=== PATIENT | male | born 1965 | race Two or more races ===

== ENCOUNTER 2020-08-06 11:54 | Outpatient (REF) | payer MEDICAID, SELFPAY ==
--- NOTE | ~2020-08-06 | XR_ITS ---
EXAMINATION: LUMBAR SPINE AND RIGHT HAND. CLINICAL INFORMATION: Right hand pain. Right finger pain. COMPARISON: None TECHNIQUE: Lumbar spine 5 views. Right hand 3 views. FINDINGS: LUMBAR SPINE: There is mild straightening of lumbar lordosis. The vertebral heights and alignment is normal. There is no visible acute fracture, dislocation or lytic process seen. On oblique views there is no pars defects seen. The soft tissues are normal. RIGHT HAND: There is no visible acute fracture, dislocation or subluxation seen. The soft tissues are normal. XR/XR lumbar spine 4V min IMPRESSION: Unremarkable lumbar spine exam. Unremarkable right hand exam.
--- NOTE | ~2020-08-06 | XR_ITS ---
EXAMINATION: LUMBAR SPINE AND RIGHT HAND. CLINICAL INFORMATION: Right hand pain. Right finger pain. COMPARISON: None TECHNIQUE: Lumbar spine 5 views. Right hand 3 views. FINDINGS: LUMBAR SPINE: There is mild straightening of lumbar lordosis. The vertebral heights and alignment is normal. There is no visible acute fracture, dislocation or lytic process seen. On oblique views there is no pars defects seen. The soft tissues are normal. RIGHT HAND: There is no visible acute fracture, dislocation or subluxation seen. The soft tissues are normal. XR/XR hand RT min 3V IMPRESSION: Unremarkable lumbar spine exam. Unremarkable right hand exam.
== END 2020-08-06 11:55 | disposition home or self-care (01) ==
LOC: HO.XRAY 11:54
PROVIDERS: PCP Internal Medicine Medical Oncology; Visit Provider Internal Medicine Medical Oncology
DX: M54.9 Dorsalgia, unspecified (principal); M79.644 Pain in right finger(s); M79.641 Pain in right hand
CPT/HCPCS: 72110; 73130

== ENCOUNTER 2020-09-17 09:44 | Outpatient (REF) | payer MEDICAID, SELFPAY ==
[2020-09-17 10:41] LABS: MANUAL DIFF FLAG NO
[2020-09-17 10:49] LABS: Basophils Percent Auto 0.6 % (0-2); Eosinophils Absolute Auto 0.6 X10*3/uL (0.0-0.4); Eosinophils Percent Auto 7.8 % (0-4); Hematocrit 44.1 % (42-52); Hemoglobin 14.8 g/dl (14.0-18.0); Imm Gran Abs Auto 0.02 X10*3/uL (0.00-0.03); Imm Gran Pct Auto 0.3 % (0.0-0.4); Lymphocytes Absolute Auto 1.6 X10*3/uL (1.2-4.9); Lymphocytes Percent Auto 23.1 % (20-40); Mean Corpuscular HGB Conc 33.6 g/dl (31.0-36.0); Mean Corpuscular Hemoglobin 31.4 pg (27.0-33.0); Mean Corpuscular Volume 93.6 fL (80-98); Mean Platelet Volume 8.7 fL (9.4-12.4); Monocytes Absolute Auto 0.5 X10*3/uL (0.1-1.2); Neutrophils Absolute Auto 4.3 X10*3/uL (2.0-8.3); Neutrophils Percent Auto 61.2 % (45-73); Platelet Count 238 X10*3/uL (160-400); Red Blood Count 4.71 X10*6/uL (4.60-5.80); Red Cell Distribution Width 12.1 % (11.0-16.0); White Blood Count 7.1 X10*3/uL (4.8-10.8)
[2020-09-17 11:14] LABS: Alanine Aminotransferase 29 U/L (0-40); Albumin Level 4.2 g/dL (3.5-5.0); Alkaline Phosphatase 61 U/L (39-117); Anion Gap 11 (12-20); Aspartate Amino Transferase 20 U/L (5-37); Bilirubin Total 0.4 mg/dL (0.0-1.0); Blood Urea Nitrogen 15 mg/dL (9-16); Calcium 9.4 mg/dL (8.4-10.2); Carbon Dioxide 25 mmol/L (22-29); Chloride 109 mmol/L (96-108); Cholesterol 154 mg/dL; Estimated Glomerular Filt Rate > 60; Glucose Fasting 123 mg/dL (60-99); HDL Cholesterol 32 mg/dL; LDL Cholesterol Calculated 105 mg/dl; Potassium 4.5 mmol/L (3.3-5.1); Sodium 140 mmol/L (135-145); Total Protein 6.9 g/dL (6.5-8.0); Triglycerides 86 mg/dL
[2020-09-17 11:38] LABS: PSA,Total (Free>4and<10) 0.45 ng/mL (0.00-4.00); Thyroid Stimulating Hormone 0.79 uIU/mL (0.32-4.0)
[2020-09-17 11:55] LABS: Vitamin B12 183 pg/mL (200-900)
== END 2020-09-17 09:45 | disposition home or self-care (01) ==
LOC: HO.LAB 09:44
PROVIDERS: Absent Provider Psychiatry & Neurology Neurology; PCP Internal Medicine Medical Oncology; Visit Provider Internal Medicine Medical Oncology
DX: Z12.5 Encounter for screening for malignant neoplasm of prostate (principal); I10 Essential (primary) hypertension; E66.01 Morbid (severe) obesity due to excess calories
CPT/HCPCS: 36415; 80053; 80061; 82607; 84153; 84443; 85025

== ENCOUNTER 2021-02-07 11:27 | Outpatient (REF) | payer MEDICAID, SELFPAY | END 2021-02-07 11:28 | disposition home or self-care (01) | LOC: HO.LAB 11:27 | PROVIDERS: Visit Provider Internal Medicine | DX: Z20.822 Contact with and (suspected) exposure to COVID-19 (principal) | CPT/HCPCS: C9803; U0003; U0005 ==

== ENCOUNTER 2021-05-03 13:14 | Outpatient (REF) | payer MEDICAID, SELFPAY ==
[2021-05-03 13:47] LABS: MANUAL DIFF FLAG NO
[2021-05-03 14:15] LABS: Basophils Absolute Auto 0.1 X10*3/uL (0.0-0.2); Basophils Percent Auto 0.7 % (0-2); Eosinophils Absolute Auto 0.5 X10*3/uL (0.0-0.4); Eosinophils Percent Auto 5.7 % (0-4); Hematocrit 44.8 % (42.0-52.0); Hemoglobin 14.7 g/dl (14.0-18.0); Imm Gran Abs Auto 0.02 X10*3/uL (0.00-0.03); Imm Gran Pct Auto 0.2 % (0.0-0.4); Lymphocytes Percent Auto 24.3 % (20-40); Mean Corpuscular HGB Conc 32.8 g/dl (31.0-36.0); Mean Corpuscular Hemoglobin 31.5 pg (27.0-33.0); Mean Corpuscular Volume 95.9 fL (80.0-98.0); Monocytes Absolute Auto 0.6 X10*3/uL (0.1-1.2); Monocytes Percent Auto 7.2 % (2-11); Neutrophils Percent Auto 61.9 % (45-73); Platelet Count 227 X10*3/uL (160-400); Red Blood Count 4.67 X10*6/uL (4.60-5.80); White Blood Count 8.1 X10*3/uL (4.8-10.8)
[2021-05-03 14:48] LABS: Alanine Aminotransferase 23 U/L (0-40); Alkaline Phosphatase 64 U/L (39-117); Anion Gap 12 (12-20); Aspartate Amino Transferase 15 U/L (5-37); Bilirubin Total 0.3 mg/dL (0.0-1.0); Blood Urea Nitrogen 13 mg/dL (9-16); Carbon Dioxide 26 mmol/L (22-29); Chloride 105 mmol/L (96-108); Cholesterol 145 mg/dL; Estimated Glomerular Filt Rate > 60; Glucose Random 112 mg/dL (60-115); HDL Cholesterol 37 mg/dL; LDL Cholesterol Calculated 78 mg/dl; Potassium 4.4 mmol/L (3.3-5.1); Sodium 139 mmol/L (135-145); Triglycerides 152 mg/dL
[2021-05-03 15:09] LABS: Prostate Specific Antigen 0.38 ng/mL (<0.05-4.0)
[2021-05-03 15:22] LABS: Vitamin B12 183 pg/mL (200-900)
== END 2021-05-03 13:15 | disposition home or self-care (01) ==
LOC: HO.LAB 13:14
PROVIDERS: PCP Internal Medicine Medical Oncology; Visit Provider Internal Medicine Medical Oncology
DX: I10 Essential (primary) hypertension (principal); M54.16 Radiculopathy, lumbar region; E66.01 Morbid (severe) obesity due to excess calories; F17.200 Nicotine dependence, unspecified, uncomplicated; Z12.5 Encounter for screening for malignant neoplasm of prostate; Z20.822 Contact with and (suspected) exposure to COVID-19
CPT/HCPCS: 80053; 80061; 82607; 84153; 85025; U0003; U0005

== ENCOUNTER 2021-08-15 07:15 | Outpatient (REF) | payer MEDICAID, SELFPAY ==
--- NOTE | ~2021-08-15 | XR_ITS ---
EXAMINATION: XR FOOT, LEFT CLINICAL INFORMATION: Pain COMPARISON: None TECHNIQUE: AP, lateral, and oblique views of the left foot. FINDINGS: There is an oblique nondisplaced fracture of the distal shaft of the fifth metatarsal bone. No other fracture is seen. There is arthritis at the first and second MTP joint with joint space narrowing and small osteophytes. Joint spaces are otherwise normal. There are small calcaneal spurs. Soft tissues are otherwise normal. XR/XR foot LT min 3V IMPRESSION: Nondisplaced fracture of the distal shaft of the fifth metatarsal bone. Mild arthritis at the first and second MTP joints. Calcaneal spurs.
== END 2021-08-15 07:16 | disposition home or self-care (01) ==
LOC: HO.HOSX 07:15
PROVIDERS: Visit Provider Physician Assistant
DX: S92.302A Fracture of unspecified metatarsal bone(s), left foot, initial encounter for closed fracture (principal)
CPT/HCPCS: 73630; 99202

== ENCOUNTER 2021-09-26 07:50 | Outpatient (REF) | payer MEDICAID, SELFPAY ==
--- NOTE | ~2021-09-26 | XR_ITS ---
EXAMINATION: XR FOOT, LEFT CLINICAL INFORMATION: Pain. COMPARISON: Radiographs dated 08/15/2021. TECHNIQUE: AP, lateral, and oblique views of the left foot. FINDINGS: Bony alignment and mineralization are normal. A mildly displaced, comminuted, oblique fracture is seen of the distal left fifth metatarsal shaft. There is slight increase in distraction of fracture fragments. No acute fracture, dislocation or left ankle joint effusion is seen. Boehler's angle is normal. There is a small plantar calcaneal spur. There is mild bunion formation of the first metatarsal head. No focal soft tissue swelling, gas or foreign body is seen. XR/XR foot LT min 3V IMPRESSION: 1. A mildly displaced, oblique distal left fifth metatarsal shaft fracture is redemonstrated. There is slight interim increase in distraction of fracture fragments. No new callus formation is seen. 2. There is a small plantar calcaneal spur. 3. There is mild osteoarthritic change of the left first metatarsophalangeal joint.
== END 2021-09-26 07:51 | disposition home or self-care (01) ==
LOC: HO.HOSX 07:50
PROVIDERS: Visit Provider Physician Assistant
DX: S92.302A Fracture of unspecified metatarsal bone(s), left foot, initial encounter for closed fracture (principal)
CPT/HCPCS: 73630; 99202

== ENCOUNTER 2021-11-02 09:08 | Outpatient (REF) | payer MEDICAID, SELFPAY ==
[2021-11-02 09:33] LABS: MANUAL DIFF FLAG NO
[2021-11-02 10:13] LABS: Basophils Absolute Auto 0.1 X10*3/uL (0.0-0.2); Basophils Percent Auto 0.7 % (0-2); Eosinophils Absolute Auto 0.3 X10*3/uL (0.0-0.4); Eosinophils Percent Auto 4.1 % (0-4); Hematocrit 45.3 % (42.0-52.0); Hemoglobin 15.4 g/dl (14.0-18.0); Imm Gran Abs Auto 0.02 X10*3/uL (0.00-0.03); Imm Gran Pct Auto 0.3 % (0.0-0.4); Lymphocytes Absolute Auto 1.9 X10*3/uL (1.2-4.9); Mean Corpuscular Hemoglobin 31.9 pg (27.0-33.0); Mean Corpuscular Volume 93.8 fL (80.0-98.0); Mean Platelet Volume 8.8 fL (9.4-12.4); Monocytes Absolute Auto 0.6 X10*3/uL (0.1-1.2); Monocytes Percent Auto 8.1 % (2-11); Neutrophils Absolute Auto 4.2 x10*3/uL (2.0-8.3); Neutrophils Percent Auto 59.8 % (45-73); Platelet Count 245 X10*3/uL (160-400); Red Blood Count 4.83 X10*6/uL (4.60-5.80); Red Cell Distribution Width 11.9 % (11.0-16.0)
[2021-11-02 10:40] LABS: Alanine Aminotransferase 22 U/L (0-40); Albumin Level 4.3 g/dL (3.5-5.0); Alkaline Phosphatase 66 U/L (39-117); Anion Gap 14 (12-20); Aspartate Amino Transferase 15 U/L (5-37); Bilirubin Total 0.3 mg/dL (0.0-1.0); Blood Urea Nitrogen 14 mg/dL (9-16); Calcium 9.4 mg/dL (8.4-10.2); Carbon Dioxide 25 mmol/L (22-29); Chloride 106 mmol/L (96-108); Cholesterol 139 mg/dL; Estimated Glomerular Filt Rate > 60; Glucose Random 122 mg/dL (60-115); HDL Cholesterol 29 mg/dL; LDL Cholesterol Calculated 90 mg/dl; Potassium 4.7 mmol/L (3.3-5.1); Sodium 140 mmol/L (135-145); Total Protein 7.2 g/dL (6.5-8.0); Triglycerides 101 mg/dL
[2021-11-02 10:54] LABS: Prostate Specific Antigen 0.48 ng/mL (<0.05-4.0)
== END 2021-11-02 09:09 | disposition home or self-care (01) ==
LOC: HO.LAB 09:08
PROVIDERS: PCP Internal Medicine Medical Oncology; Visit Provider Internal Medicine Medical Oncology
DX: Z12.5 Encounter for screening for malignant neoplasm of prostate (principal); I10 Essential (primary) hypertension; E66.01 Morbid (severe) obesity due to excess calories; E53.8 Deficiency of other specified B group vitamins
CPT/HCPCS: 36415; 80053; 80061; 84153; 85025

== ENCOUNTER 2022-01-25 08:17 | Outpatient (REF) | payer MEDICAID, SELFPAY ==
[2022-01-25 08:31] LABS: MANUAL DIFF FLAG NO
[2022-01-25 08:53] LABS: Basophils Absolute Auto 0.1 X10*3/uL (0.0-0.2); Basophils Percent Auto 0.7 % (0-2); Eosinophils Absolute Auto 0.4 X10*3/uL (0.0-0.4); Hematocrit 44.6 % (42.0-52.0); Hemoglobin 14.9 g/dl (14.0-18.0); Imm Gran Abs Auto 0.01 X10*3/uL (0.00-0.03); Imm Gran Pct Auto 0.1 % (0.0-0.4); Lymphocytes Absolute Auto 1.6 X10*3/uL (1.2-4.9); Lymphocytes Percent Auto 23.4 % (20-40); Mean Corpuscular HGB Conc 33.4 g/dl (31.0-36.0); Mean Corpuscular Hemoglobin 31.7 pg (27.0-33.0); Mean Corpuscular Volume 94.9 fL (80.0-98.0); Mean Platelet Volume 9.1 fL (9.4-12.4); Monocytes Absolute Auto 0.5 X10*3/uL (0.1-1.2); Monocytes Percent Auto 7.6 % (2-11); Neutrophils Absolute Auto 4.2 x10*3/uL (2.0-8.3); Neutrophils Percent Auto 62.2 % (45-73); Platelet Count 227 X10*3/uL (160-400); Red Cell Distribution Width 11.8 % (11.0-16.0); White Blood Count 6.7 X10*3/uL (4.8-10.8)
[2022-01-25 09:48] LABS: Alanine Aminotransferase 29 U/L (0-40); Albumin Level 4.2 g/dL (3.5-5.0); Alkaline Phosphatase 63 U/L (39-117); Anion Gap 12 (12-20); Aspartate Amino Transferase 17 U/L (5-37); Bilirubin Total 0.2 mg/dL (0.0-1.0); Blood Urea Nitrogen 15 mg/dL (9-16); Carbon Dioxide 24 mmol/L (22-29); Chloride 109 mmol/L (96-108); Cholesterol 132 mg/dL; Estimated Glomerular Filt Rate > 60; Glucose Fasting 126 mg/dL (60-99); HDL Cholesterol 28 mg/dL; LDL Cholesterol Calculated 88 mg/dl; Potassium 4.6 mmol/L (3.3-5.1); Sodium 140 mmol/L (135-145); Total Protein 6.8 g/dL (6.5-8.0); Triglycerides 82 mg/dL; Vitamin D 25-OH Total 15.2 ng/mL (>30)
[2022-01-25 09:54] LABS: Vitamin B12 483 pg/mL (200-900)
== END 2022-01-25 08:18 | disposition home or self-care (01) ==
LOC: HO.LAB 08:17
PROVIDERS: PCP Internal Medicine Medical Oncology; Visit Provider Internal Medicine Medical Oncology
DX: I10 Essential (primary) hypertension (principal); E53.8 Deficiency of other specified B group vitamins; N40.0 Benign prostatic hyperplasia without lower urinary tract symptoms
CPT/HCPCS: 36415; 80053; 80061; 82306; 82607; 83735; 85025

== ENCOUNTER 2022-04-25 09:04 | Outpatient (REF) | payer MEDICAID, SELFPAY ==
[2022-04-25 09:20] LABS: MANUAL DIFF FLAG NO
[2022-04-25 09:37] LABS: Basophils Percent Auto 0.6 % (0-2); Eosinophils Absolute Auto 0.3 X10*3/uL (0.0-0.4); Eosinophils Percent Auto 4.7 % (0-4); Hematocrit 46.7 % (42.0-52.0); Hemoglobin 15.7 g/dl (14.0-18.0); Imm Gran Abs Auto 0.02 X10*3/uL (0.00-0.03); Imm Gran Pct Auto 0.3 % (0.0-0.4); Lymphocytes Absolute Auto 1.8 X10*3/uL (1.2-4.9); Lymphocytes Percent Auto 25.8 % (20-40); Mean Corpuscular HGB Conc 33.6 g/dl (31.0-36.0); Mean Corpuscular Hemoglobin 31.3 pg (27.0-33.0); Mean Corpuscular Volume 93.2 fL (80.0-98.0); Monocytes Absolute Auto 0.5 X10*3/uL (0.1-1.2); Monocytes Percent Auto 7.1 % (2-11); Neutrophils Absolute Auto 4.2 x10*3/uL (2.0-8.3); Neutrophils Percent Auto 61.5 % (45-73); Platelet Count 227 X10*3/uL (160-400); Red Blood Count 5.01 X10*6/uL (4.60-5.80); Red Cell Distribution Width 12.2 % (11.0-16.0); White Blood Count 6.8 X10*3/uL (4.8-10.8)
[2022-04-25 10:09] LABS: Alanine Aminotransferase 28 U/L (0-40); Albumin Level 4.2 g/dL (3.5-5.0); Alkaline Phosphatase 67 U/L (39-117); Anion Gap 14 (12-20); Aspartate Amino Transferase 17 U/L (5-37); Bilirubin Total 0.5 mg/dL (0.0-1.0); Blood Urea Nitrogen 18 mg/dL (9-16); Carbon Dioxide 24 mmol/L (22-29); Chloride 107 mmol/L (96-108); Cholesterol 159 mg/dL; Estimated Glomerular Filt Rate > 60; Glucose Fasting 138 mg/dL (60-99); HDL Cholesterol 33 mg/dL; LDL Cholesterol Calculated 103 mg/dl; Potassium 4.6 mmol/L (3.3-5.1); Sodium 140 mmol/L (135-145); Total Protein 7.1 g/dL (6.5-8.0); Triglycerides 115 mg/dL
[2022-04-25 10:41] LABS: Folate 14.6 ng/mL (> or = 4.0); Vitamin B12 517 pg/mL (200-900); Vitamin D 25-OH Total 16.7 ng/mL (>30)
== END 2022-04-25 09:05 | disposition home or self-care (01) ==
LOC: HO.LAB 09:04
PROVIDERS: PCP Internal Medicine Medical Oncology; Visit Provider Internal Medicine Medical Oncology
DX: I10 Essential (primary) hypertension (principal); E66.01 Morbid (severe) obesity due to excess calories; E53.8 Deficiency of other specified B group vitamins; N40.0 Benign prostatic hyperplasia without lower urinary tract symptoms
CPT/HCPCS: 36415; 80053; 80061; 82306; 82607; 82746; 85025

== ENCOUNTER 2022-11-25 09:58 | Outpatient (REF) | payer MEDICAID, SELFPAY | END 2022-11-25 09:59 | disposition home or self-care (01) | LOC: HO.LAB 09:58 | PROVIDERS: PCP Internal Medicine Medical Oncology; Visit Provider Internal Medicine Medical Oncology | DX: R39.9 Unspecified symptoms and signs involving the genitourinary system (principal) | CPT/HCPCS: 87086 ==

== ENCOUNTER 2022-12-21 10:57 | Emergency (ER) | payer MEDICAID, SELFPAY ==
[2022-12-21 10:59] VITALS: BP 152/93; PULSE 80; RESP 20; TEMP 36.7; O2SAT 96; BMI 49.8
--- NOTE | 2022-12-21 11:05 | ED.GENADULT ---
HPI - General Adult General Chief complaint: Extremity Problem Stated complaint: l middle finger inj Time Seen by Provider: 12/21/22 11:05 Source: patient Mode of arrival: ambulatory Limitations: no limitations History of Present Illness HPI narrative: Patient is a 57 year old assigned male at with no reported medical history presenting to the emergency department today with swelling to the left middle finger. Patient states that over the last 2 days he has had pain and increased swelling around the tip of the left middle finger. Patient denies any dizziness, lightheadedness, abdominal pain, nausea, vomiting, fever, chills, blurry vision, double vision, loss of vision, chest pain, difficulty breathing, shortness of breath, back pain, night sweats, pain with urination, increased urinary frequency, increased urinary urgency, blood in his urine or stool, syncope or a near syncopal episode, recent trauma or falls, bowel incontinence, bladder incontinence, bowel retention, bladder retention, or any other complaints at this time. Onset (ago): day(s) (2) Location: left (middle finger) Radiation: non-radiation Severity: mild Severity scale (1-10): 3 Quality: aching and dull Pain Consistency: constant Relieving factors: none Exacerbating factors: none Associated symptoms: denies other symptoms Treatments prior to arrival: none Related Data Home Medications Medication Instructions Recorded Confirmed acetaminophen 325 mg capsule 325 mg PO QID PRN 08/15/21 (Tylenol) gabapentin 600 mg tablet 600 mg PO QID 08/15/21 Previous Rx's Medication Instructions Recorded cephalexin 500 mg capsule 500 mg PO Q6H 7 days #28 caps 12/21/22 Allergies Allergy/AdvReac Type Severity Reaction Status Date / Time No Known Allergies Allergy Verified 09/26/21 11:52 Review of Systems Constitutional: Constitutional: Reports no additional constitutional complaints, Denies chills, Denies fever(s) and Denies night sweats Eyes: Eyes: Reports no additional eye complaints, Denies blurry vision, Denies change in vision, Denies diplopia, Denies eye discharge, Denies loss of vision and Denies eye pain ENT: Denies dizziness Cardiovascular: Cardiovascular: Reports no additional cardiovascular complaints, Denies chest pain, Denies lightheadedness, Denies Loss of Consciousness and Denies dyspnea Respiratory: Respiratory: Reports no additional respiratory complaints and Denies dyspnea Gastrointestinal: Gastrointestinal: Reports no additional gastrointestinal complaints, Denies abdominal pain, Denies melena, Denies hematochezia, Denies change in bowel habits and Denies change in stool character Genitourinary: Genitourinary: Reports no additional male genitourinary complaints, Denies hematuria, Denies oliguria, Denies difficulty urinating, Denies dysuria, Denies urinary frequency, Denies urinary hesitancy, Denies urinary incontinence and Denies urinary urgency Musculoskeletal: Musculoskeletal: Reports no additional musculoskeletal complaints, Denies numbness and Denies tingling Comments: left middle finger swelling Neurologic: Denies dizziness, Denies loss of vision, Denies numbness and Denies tingling Psychiatric: Psychiatric: Reports no additional psychiatric complaints Endocrine: Endocrine: Reports no additional endocrine complaints Hematologic/Lymphatic: Hematologic/Lymphatic: Reports no additional hematologic/lymphatic complaints Allergic/Immunologic: Allergic/Immunologic: Reports no additional allergic/immunologic complaints PMFSH Past Medical History Attestation statement: The following information was validated with the patient. 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 Physical Exam ED Vital Signs: Vital Signs - 24 hr 12/21/22 10:59 Temperature 98.1 F Pulse Rate 80 Respiratory Rate 20 Blood Pressure 152/93 H Pulse Oximetry 96 Oxygen Delivery Method Room Air BMI result Body Mass Index 49.8 Const General: cooperative, no acute distress, alert and awake Nutritional Appearance: well nourished Orientation/consciousness: patient oriented x3 Limitations: no limitations [facility] Head: Yes normal to inspection and Yes atraumatic Ears: hearing grossly normal bilaterally and external ears normal General nose exam: Normal external nose present, no nasal discharge noted and no epistaxis Face and sinus: Yes normal facial exam, No abrasion and No laceration Mouth: Normal oral and palatal mucosa present, no drooling and no muffled voice Eyes General: appearance normal, both eyes and all related structures Periorbital: periorbital findings normal Eyelids: Yes eyelids normal Conjunctivae: conjunctivae normal Pupils: Equal, round and reactive pupils present EOM: EOMs intact bilaterally Neck Neck: Yes normal visual inspection, Yes full ROM and Yes no lymphadenopathy Chest Chest palpation & inspection: normal inspection of the chest Resp Effort & Inspection: normal respiratory effort and able to speak in complete sentences GI Inspection: Yes normal to inspection Neuro General: patient oriented x3 and moves all extremities Cranial nerves: Yes Equal, round and reactive pupils present Cognition (Neuro): normal cognition Motor exam (neuro): 5/5 motor strength present throughout Sensory Exam: Normal double simultaneous stimulation for sensation Coordination: [id number] test normal Extrem Other: obvious paronychia to the left middle finger with erythema and fluctuance around the radial aspect of the nail bed General: Yes full ROM and Yes capillary refill normal Psych Appearance: grossly normal Mental Status: mental status grossly normal Affect: normal affect Attitude: cooperative Thought process: Normal thought process present Thought content: Normal thought content present Insight: Good insight present (Psych) Procedures Abscess I/D Site: other (3rd digit) Side (if applicable): left Technique: needle aspiration Amount of fluid expressed (mL): 5 Sent for culture/gram staining?: No Irrigation: No Packing used?: none Medical Decision Making Medical Decision Making MDM Narrative: Patient is a 57 year old assigned male at with no reported medical history presenting to the emergency department today with a left 3rd digit paronychia. Patient's physical exam was as noted in the physical exam portion of this note. I explained my physical exam findings to the patient. I answered all questions asked by the patient. Patient's finger was incised with an 18g needle, without incident. Patient's PMS was in tact prior to and after I&D. I stressed the importance of the patient taking his medication as prescribed. I stressed the importance of the patient following up with his primary care provider. I stressed the importance of the patient returning to the emergency department immediately if his symptoms were to worsen or if he were to develop any dizziness, shortness of breath, difficulty breathing, chest pain, blurry vision, loss of vision, nausea, vomiting, abdominal pain, fever, chills, back pain, or any other complaints. Patient verbalized agreement and understanding with this treatment plan and discharge. Differential Diagnosis Differential Diagnoses: The differential diagnosis associated with the presentation includes Paronychia Prescription Management I considered prescription management with: Antibiotic (patient prescribed an antibiotic.) Discharge Plan Discharge Clinical Impression: Paronychia of finger Patient Disposition: Home, Self-Care Instructions: Paronychia (ED) Additional Instructions: Take your antibiotic as prescribed. Apply warm compresses to the area. Follow up with your primary care provider. Return to the emergency department immediately if your symptoms worsen or if you develop any dizziness, shortness of breath, difficulty breathing, chest pain, blurry vision, loss of vision, nausea, vomiting, abdominal pain, fever, chills, back pain, or any other complaints. Prescriptions: New cephalexin 500 mg capsule 500 mg PO Q6H 7 Days Qty: 28 0RF No Action gabapentin 600 mg tablet 600 mg PO QID acetaminophen [Tylenol] 325 mg capsule 325 mg PO QID PRN Referrals: Casa Dyson MD [Primary Care Provider] - Interventions: ED Discharge Assessment Last Done: 12/21/22 11:25 Discharge Date/Time: 12/21/22 11:26 Print Language: Sinhala
--- NOTE | 2022-12-21 11:08 | PC.NURSE ---
Pt has inflamed area at the base of the middle finger nail. there is a small area the size of a dime filled with pus. Pt reports that it started bothering him 2 days prior and starting forming a psu pocket today. No known trauma, pt states there was potentially a hang nail. PA in with patient at this time
== END 2022-12-21 11:26 | disposition home or self-care (01) ==
PROVIDERS: Emergency Provider Emergency Medicine; PCP Internal Medicine Medical Oncology
DX: L03.012 Cellulitis of left finger (principal)
CPT/HCPCS: 26010; 99283; 99284

== ENCOUNTER 2023-03-13 08:31 | Outpatient (REF) | payer MEDICAID, SELFPAY ==
[2023-03-13 09:12] LABS: MANUAL DIFF FLAG NO
[2023-03-13 10:12] LABS: Basophils Absolute Auto 0.1 X10*3/uL (0.0-0.2); Basophils Percent Auto 0.8 % (0-2); Eosinophils Absolute Auto 0.3 X10*3/uL (0.0-0.4); Eosinophils Percent Auto 4.7 % (0-4); Hematocrit 45.8 % (42.0-52.0); Hemoglobin 15.4 g/dl (14.0-18.0); Imm Gran Abs Auto 0.02 X10*3/uL (0.00-0.03); Imm Gran Pct Auto 0.3 % (0.0-0.4); Lymphocytes Absolute Auto 1.5 X10*3/uL (1.2-4.9); Lymphocytes Percent Auto 25.2 % (20-40); Mean Corpuscular HGB Conc 33.6 g/dl (31.0-36.0); Mean Corpuscular Hemoglobin 31.4 pg (27.0-33.0); Mean Corpuscular Volume 93.3 fL (80.0-98.0); Monocytes Absolute Auto 0.5 X10*3/uL (0.1-1.2); Monocytes Percent Auto 7.7 % (2-11); Neutrophils Absolute Auto 3.7 x10*3/uL (2.0-8.3); Neutrophils Percent Auto 61.3 % (45-73); Platelet Count 246 X10*3/uL (160-400); Red Blood Count 4.91 X10*6/uL (4.60-5.80); Red Cell Distribution Width 11.9 % (11.0-16.0)
[2023-03-13 11:03] LABS: Alanine Aminotransferase 19 U/L (0-40); Albumin Level 4.2 g/dL (3.5-5.0); Alkaline Phosphatase 57 U/L (39-117); Anion Gap 10 (12-20); Aspartate Amino Transferase 14 U/L (5-37); Bilirubin Total 0.4 mg/dL (0.0-1.0); Blood Urea Nitrogen 16 mg/dL (9-16); Calcium 9.5 mg/dL (8.4-10.2); Carbon Dioxide 24 mmol/L (22-29); Chloride 109 mmol/L (96-108); Cholesterol 136 mg/dL (<200); Estimated Glomerular Filt Rate > 60; Glucose Fasting 130 mg/dL (60-99); HDL Cholesterol 30 mg/dL (>40); LDL Cholesterol Calculated 88 mg/dL (<100); Sodium 139 mmol/L (135-145); Total Protein 7.2 g/dL (6.5-8.0); Triglycerides 94 mg/dL (<150)
[2023-03-13 12:21] LABS: Vitamin B12 315 pg/mL (200-900)
== END 2023-03-13 08:32 | disposition home or self-care (01) ==
LOC: HO.LAB 08:31
PROVIDERS: PCP Internal Medicine Medical Oncology; Visit Provider Internal Medicine Medical Oncology
DX: I10 Essential (primary) hypertension (principal); E66.01 Morbid (severe) obesity due to excess calories; E53.8 Deficiency of other specified B group vitamins
CPT/HCPCS: 36415; 80053; 80061; 82607; 85025

== ENCOUNTER 2023-08-03 09:38 | Outpatient (REF) | payer MEDICAID, SELFPAY ==
[2023-08-03 09:49] LABS: MANUAL DIFF FLAG NO
[2023-08-03 10:50] LABS: Basophils Absolute Auto 0.1 X10*3/uL (0.0-0.2); Basophils Percent Auto 0.7 % (0-2); Eosinophils Absolute Auto 0.2 X10*3/uL (0.0-0.4); Eosinophils Percent Auto 3.2 % (0-4); Hematocrit 45.3 % (42.0-52.0); Hemoglobin 15.9 g/dl (14.0-18.0); Imm Gran Abs Auto 0.02 X10*3/uL (0.00-0.03); Imm Gran Pct Auto 0.3 % (0.0-0.4); Lymphocytes Absolute Auto 1.9 X10*3/uL (1.2-4.9); Lymphocytes Percent Auto 27.2 % (20-40); Mean Corpuscular HGB Conc 35.1 g/dl (31.0-36.0); Mean Corpuscular Hemoglobin 32.4 pg (27.0-33.0); Mean Corpuscular Volume 92.3 fL (80.0-98.0); Mean Platelet Volume 8.6 fL (9.4-12.4); Monocytes Absolute Auto 0.5 X10*3/uL (0.1-1.2); Monocytes Percent Auto 6.9 % (2-11); Neutrophils Absolute Auto 4.3 x10*3/uL (2.0-8.3); Neutrophils Percent Auto 61.7 % (45-73); Platelet Count 241 X10*3/uL (160-400); Red Blood Count 4.91 X10*6/uL (4.60-5.80)
[2023-08-03 10:58] LABS: Estimated Average Glucose 111 mg/dL; Hemoglobin A1c % 5.5 % (<6.0)
[2023-08-03 11:23] LABS: Alanine Aminotransferase 17 U/L (0-40); Albumin Level 4.3 g/dL (3.5-5.0); Alkaline Phosphatase 59 U/L (39-117); Anion Gap 10 (12-20); Aspartate Amino Transferase 13 U/L (5-37); Bilirubin Total 0.5 mg/dL (0.0-1.0); Blood Urea Nitrogen 13 mg/dL (9-16); Calcium 9.7 mg/dL (8.4-10.2); Carbon Dioxide 26 mmol/L (22-29); Chloride 108 mmol/L (96-108); Cholesterol 132 mg/dL (<200); Estimated Glomerular Filt Rate > 60; Glucose Fasting 103 mg/dL (60-99); HDL Cholesterol 32 mg/dL (>40); LDL Cholesterol Calculated 84 mg/dL (<100); Potassium 4.1 mmol/L (3.3-5.1); Sodium 140 mmol/L (135-145); Total Protein 7.3 g/dL (6.5-8.0); Triglycerides 83 mg/dL (<150)
[2023-08-03 11:47] LABS: Vitamin B12 285 pg/mL (200-900)
== END 2023-08-03 09:39 | disposition home or self-care (01) ==
LOC: HO.LAB 09:38
PROVIDERS: PCP Internal Medicine Medical Oncology; Visit Provider Internal Medicine Medical Oncology
DX: I10 Essential (primary) hypertension (principal); M54.16 Radiculopathy, lumbar region; E66.01 Morbid (severe) obesity due to excess calories; E53.8 Deficiency of other specified B group vitamins; E55.9 Vitamin D deficiency, unspecified; N40.0 Benign prostatic hyperplasia without lower urinary tract symptoms
CPT/HCPCS: 36415; 80053; 80061; 82607; 83036; 84153; 85025

== ENCOUNTER 2023-09-12 10:24 | Emergency (ER) | payer MEDICAID, SELFPAY ==
[2023-09-12 10:36] VITALS: BP 133/76; PULSE 88; RESP 19; TEMP 36.9; O2SAT 96; BMI 43.6
--- NOTE | 2023-09-12 10:57 | ED.GENADULT ---
HPI - General Adult General Chief complaint: General Medical Stated complaint: L leg swelling/Red Fever/Headache Time Seen by Provider: 09/12/23 13:56 Source: patient Mode of arrival: ambulatory Limitations: no limitations History of Present Illness ED Provider: lili SCHNEIDER narrative: Patient is a 50-year-old male presenting to emergency department with complaint of left lower leg redness and swelling since this morning as well as subjective fever last night. Also complains of diarrhea and generalized abdominal pain. Did not check temperature with thermometer. Denies nausea or vomiting. Denies any hematochezia or melena. Able to tolerate food and fluids by mouth. Reports history of cellulitis in the past. MD complaint: leg pain Onset (ago): day(s) Location: left and lower extremity Radiation: non-radiation Severity: moderate Quality: aching Pain Consistency: constant Associated symptoms: fever/chills and other (diarrhea) Treatments prior to arrival: none Related Data Home Medications ?Medication ?Instructions ?Recorded ?Confirmed acetaminophen 325 mg capsule 325 mg PO QID PRN 08/15/21 (Tylenol) gabapentin 600 mg tablet 600 mg PO QID 08/15/21 Previous Rx's ?Medication ?Instructions ?Recorded cephalexin 500 mg capsule 500 mg PO Q6H 7 days #28 caps 12/21/22 cephalexin 500 mg capsule 500 mg PO QID 7 days #28 caps 09/12/23 Allergies Allergy/AdvReac Type Severity Reaction Status Date / Time No Known Allergies Allergy Verified 09/12/23 10:38 Review of Systems Review of Systems: As per HPI. 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 Blood pressure normal. Heart rate normal. Respiratory rate normal. Temperature normal. Oxygen saturation normal. Const General: cooperative and no acute distress Orientation/consciousness: oriented to person, oriented to place, oriented to time and patient oriented x3 Limitations: no limitations HENMT Head: Yes normocephalic and Yes atraumatic Ears: external ears normal General nose exam: Normal external nose present Face and sinus: Yes face symmetric Mouth: oropharynx normal and moist mucous membranes Throat: Yes uvula midline Eyes Pupils: Equal, round and reactive pupils present Neck Neck: Yes normal visual inspection and Yes supple Resp Effort & Inspection: normal respiratory effort and able to speak in complete sentences Auscultation: clear to auscultation bilaterally Cardio Rate: regular rate Rhythm: regular rhythm Heart sounds: S1 normal heart sound present and S2 normal heart sound present GI Palpation (GI): Soft to palpation and nontender Auscultation: normoactive bowel sounds General: Yes no CVA tenderness Back/Spine/Pelvis Back: no CVA tenderness Skin General skin exam: elasticity normal and turgor normal Neuro General: oriented to person, oriented to place, oriented to time, patient oriented x3, moves all extremities, no focal motor deficits and CN's II-XI intact bilaterally Cranial nerves: Yes Equal, round and reactive pupils present Cognition (Neuro): normal cognition Extrem General: Yes full ROM, Yes no pedal edema and Yes no calf tenderness Left lower extremity: lower leg Details: erythema Location: of the distal lower leg Location: anteriorly, tenderness Location: of the distal tibia; not of the posterior calf, localized swelling Location: of the distal lower leg (mild), no edema and warmth Location: of the distal lower leg; no palpable cords and foot Details: toes with normal ROM and vascular exam Details: dorsalis pedis pulse present and posterior tibial pulse present Psych Mental Status: mental status grossly normal Affect: normal affect Thought process: Normal thought process present Medical Decision Making Medical Decision Making MDM Narrative: Patient is a 50-year-old male presenting to emergency department with complaint of left lower leg redness and swelling since this morning as well as subjective fever last night. On exam patient is awake, A+Ox3, VS WNL, afebrile, normal neurological exam without focal deficits, physical exam findings as above. Given reported symptoms and physical exam findings, initial differential includes cellulitis, electrolyte abnormality, dehydration. Unlikely DVT. Labs notable for left shift without leukocytosis, no evidence of JAYDON, no electrolyte abnormalities. Physical exam consistent with cellulitis. Will treat with cephalexin, advised to monitor area daily and follow up with PCP. Return precautions discussed. Patient verbalized understanding of and agreement with plan. Differential Diagnosis Differential Diagnoses: The differential diagnosis associated with the presentation includes As per [facility] Lab Data [facility] Lab Attestation statement: I reviewed the patient's lab results. As per [facility] 09/12/23 11:54 09/12/23 11:54 Labs: Lab Results 09/12/23 Range/Units 11:54 WBC 10.5 (4.8-10.8) X10*3/uL RBC 4.80 (4.60-5.80) X10*6/uL Hgb 15.6 (14.0-18.0) g/dl Hct 44.4 (42.0-52.0) % MCV 92.5 (80.0-98.0) fL MCH 32.5 (27.0-33.0) pg MCHC 35.1 (31.0-36.0) g/dl RDW 11.9 (11.0-16.0) % Plt Count 184 (160-400) X10*3/uL MPV 8.2 L (9.4-12.4) fL Immature Gran % (Auto) 0.3 (0.0-0.4) % Neut % (Auto) 76.1 H (45-73) % Lymph % (Auto) 14.6 L (20-40) % [place] % (Auto) 7.4 (2-11) % Eos % (Auto) 1.2 (0-4) % Baso % (Auto) 0.4 (0-2) % Lymph # (Auto) 1.5 (1.2-4.9) X10*3/uL [place] # (Auto) 0.8 (0.1-1.2) X10*3/uL Eos # (Auto) 0.1 (0.0-0.4) X10*3/uL Baso # (Auto) 0.0 (0.0-0.2) X10*3/uL Abs Immat Gran (auto) 0.03 (0.00-0.03) X10*3/uL Absolute Neuts (auto) 8.0 (2.0-8.3) x10*3/uL Absolute Nucleated RBC 0.000 (0.0-0.012) X10*3/uL Nucleated RBC % (auto) 0.0 (0.0-0.2) /100WBC Sodium 139 (135-145) mmol/L Potassium 4.1 (3.3-5.1) mmol/L Chloride 107 (96-108) mmol/L Carbon Dioxide 23 (22-29) mmol/L Anion Gap 13 (12-20) BUN 12 (9-16) mg/dL Creatinine 0.77 (0.5-1.4) mg/dL Estim Creat Clear Calc 142.0 Estimated GFR > 60 Random Glucose 102 (60-115) mg/dL Calcium 9.6 (8.4-10.2) mg/dL Magnesium 2.0 (1.6-2.6) mg/dL Total Bilirubin 0.6 (0.0-1.0) mg/dL AST 12 (5-37) U/L ALT 15 (0-40) U/L Alkaline Phosphatase 55 (39-117) U/L Total Protein 7.4 (6.5-8.0) g/dL Albumin 4.2 (3.5-5.0) g/dL Influenza Type A (PCR) NEGATIVE (Negative) Influenza Type B (PCR) NEGATIVE (Negative) RSV RNA Qual (PCR) NEGATIVE (Negative) SARS-CoV-2 RNA (RT-PCR) NEGATIVE (Negative) External Record Review External record reviewed: Inpatient record, Office record and Outpatient record Prescription Management I considered prescription management with: Antibiotic Discharge Plan Discharge Clinical Impression: Cellulitis of left lower leg Patient Disposition: Home, Self-Care Instructions: Cephalexin (By mouth), Cellulitis (DC) Additional Instructions: You have been evaluated in the emergency department today for skin infection, also known as cellulitis. If the area of inflammation was outlined today in the ER, please return to the ER immediately if the area of redness increases beyond the border. Please take your prescribed antibiotics as directed for the full course of the medication. You can use Tylenol or ibuprofen per package instructions every 6 hours as needed for pain. If necessary, you can alternate these medications so that you can take one medication every 3 hours. For instance, at noon take ibuprofen, then at 3:00 p.m. take Tylenol, then at 6:00 p.m. take ibuprofen. Please schedule an appointment for follow-up with your primary care physician as soon as possible. Return to the emergency department if you experience recurrent vomiting, fevers greater than 100.4? F, increasing area of redness, warmth around the area, foul-smelling discharge from the area, increased tenderness around the area, or any other concerning symptoms. Prescriptions: New cephalexin 500 mg capsule 500 mg PO QID 7 Days Qty: 28 0RF No Action cephalexin 500 mg capsule 500 mg PO Q6H 7 Days Qty: 28 0RF gabapentin 600 mg tablet 600 mg PO QID acetaminophen [Tylenol] 325 mg capsule 325 mg PO QID PRN Interventions: ED Discharge Assessment Last Done: 09/12/23 14:11 Print Language: Urdu
[2023-09-12 11:59] LABS: MANUAL DIFF FLAG NO
[2023-09-12 12:00] LABS: Basophils Percent Auto 0.4 % (0-2); Eosinophils Absolute Auto 0.1 X10*3/uL (0.0-0.4); Eosinophils Percent Auto 1.2 % (0-4); Hematocrit 44.4 % (42.0-52.0); Hemoglobin 15.6 g/dl (14.0-18.0); Imm Gran Abs Auto 0.03 X10*3/uL (0.00-0.03); Imm Gran Pct Auto 0.3 % (0.0-0.4); Lymphocytes Absolute Auto 1.5 X10*3/uL (1.2-4.9); Lymphocytes Percent Auto 14.6 % (20-40); Mean Corpuscular HGB Conc 35.1 g/dl (31.0-36.0); Mean Corpuscular Hemoglobin 32.5 pg (27.0-33.0); Mean Corpuscular Volume 92.5 fL (80.0-98.0); Mean Platelet Volume 8.2 fL (9.4-12.4); Monocytes Absolute Auto 0.8 X10*3/uL (0.1-1.2); Monocytes Percent Auto 7.4 % (2-11); Neutrophils Percent Auto 76.1 % (45-73); Platelet Count 184 X10*3/uL (160-400); Red Cell Distribution Width 11.9 % (11.0-16.0); White Blood Count 10.5 X10*3/uL (4.8-10.8)
[2023-09-12 12:16] LABS: Alanine Aminotransferase 15 U/L (0-40); Albumin Level 4.2 g/dL (3.5-5.0); Alkaline Phosphatase 55 U/L (39-117); Anion Gap 13 (12-20); Aspartate Amino Transferase 12 U/L (5-37); Bilirubin Total 0.6 mg/dL (0.0-1.0); Blood Urea Nitrogen 12 mg/dL (9-16); Calcium 9.6 mg/dL (8.4-10.2); Carbon Dioxide 23 mmol/L (22-29); Chloride 107 mmol/L (96-108); Estimated Glomerular Filt Rate > 60; Glucose Random 102 mg/dL (60-115); Potassium 4.1 mmol/L (3.3-5.1); Sodium 139 mmol/L (135-145); Total Protein 7.4 g/dL (6.5-8.0)
[2023-09-12 12:39] LABS: Influenza A PCR NEGATIVE (Negative); Influenza B PCR NEGATIVE (Negative); Resp Syncy Virus RNA Qual PCR NEGATIVE (Negative); SARS COV2 PCR INHOUSE NEGATIVE (Negative)
[2023-09-12 14:07] VITALS: BP 112/72; PULSE 70; RESP 17; TEMP 36.9; O2SAT 98
[2023-09-12 14:11] VITALS: BP 112/72; PULSE 70; RESP 17; TEMP 36.9; O2SAT 98
== END 2023-09-12 14:12 | disposition home or self-care (01) ==
PROVIDERS: Registered Nurse Emergency; Emergency Provider Emergency Medicine Emergency Medical Services; PCP Internal Medicine Medical Oncology
DX: L03.116 Cellulitis of left lower limb (principal); M79.662 Pain in left lower leg; Z03.818 Encounter for observation for suspected exposure to other biological agents ruled out; R19.7 Diarrhea, unspecified; R50.9 Fever, unspecified
CPT/HCPCS: 0241U; 36415; 80053; 83735; 85025; 99282; 99283

== ENCOUNTER 2023-11-25 10:03 | Emergency (ER) | payer MEDICAID, SELFPAY ==
[2023-11-25 10:06] VITALS: BP 142/77; PULSE 86; RESP 20; TEMP 35.8; O2SAT 96; BMI 43.6
--- NOTE | 2023-11-25 11:17 | ED_ITS ---
HPI - General Adult General Chief complaint: Ear Problems Stated complaint: L ear infection Time Seen by Provider: 11/25/23 11:10 Source: patient Mode of arrival: ambulatory Limitations: no limitations History of Present Illness ED Provider: Barry Wise PA-C HPI narrative: 58-year-old male history of fracture of metatarsal of left foot presents to ED for left ear pain for the past couple of days. Patient states decreased hearing left ear and left ear feels full. Patient denies any bleeding of the ear or any recent trauma to the ear. Patient denies any headache, nausea, vomiting, fever, chills, cough. Related Data Home Medications ?Medication ?Instructions ?Recorded ?Confirmed acetaminophen 325 mg capsule 325 mg PO QID PRN 08/15/21 (Tylenol) gabapentin 600 mg tablet 600 mg PO QID 08/15/21 Previous Rx's ?Medication ?Instructions ?Recorded cephalexin 500 mg capsule 500 mg PO Q6H 7 days #28 caps 12/21/22 cephalexin 500 mg capsule 500 mg PO QID 7 days #28 caps 09/12/23 amoxicillin 875 mg-potassium 1 tab PO Q12H 10 days #20 tabs 11/25/23 clavulanate 125 mg tablet naproxen 500 mg tablet 500 mg PO BID PRN pain 7 days #14 11/25/23 tabs [id number]-VM-[id number] 3.3 4 drp otic (ear) left TID 7 days 11/25/23 mg-3 mg-10 mg-0.5 mg/mL ear #10 mL drops,susp (Cortisporin-TC) Allergies Allergy/AdvReac Type Severity Reaction Status Date / Time No Known Allergies Allergy Verified 11/25/23 10:07 Review of Systems Review of Systems: Left ear pain Yes all other systems are reviewed and are negative [facility] Social History Social History Substance Use Type: Marijuana Advance Directives: No Current occupational status: unemployed 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 Physical Exam ED Vital Signs: Vital Signs - 24 hr 11/25/23 10:06 11/25/23 11:43 Temperature 96.5 F L 96.5 F L Pulse Rate 86 86 Respiratory Rate 20 20 Blood Pressure 142/77 H 142/77 H Pulse Oximetry 96 96 Oxygen Delivery Method Room Air Room Air BMI result Body Mass Index 43.6 Const General: cooperative, healthy appearing, comfortable, no acute distress, well developed, alert, awake and Physically active Orientation/consciousness: patient oriented x3 [facility] Head: Yes normal to inspection, Yes No palpable skull fracture present, Yes normocephalic, Yes atraumatic and No abrasion Ears: hearing grossly normal bilaterally, external ears normal, TM's normal bilaterally, TM normal on the right, mastoids normal, no periauricular adenopathy, Abnormal EAC present otic discharge occluded by discharge on the left, TM abnormal erythematous on the left and unable to visualize TM Throat: Yes posterior oropharynx normal, Yes tonsils normal and Yes uvula midline Eyes General: appearance normal, both eyes and all related structures Neck Neck: Yes normal visual inspection, Yes full ROM, Yes no lymphadenopathy, Yes no meningeal signs, Yes trachea midline, Yes supple, No anterior neck swelling and No tender Chest Chest palpation & inspection: normal inspection of the chest and normal palpation of entire chest wall Resp Effort & Inspection: normal respiratory effort and able to speak in complete sentences Auscultation: clear to auscultation bilaterally Cardio Jugular venous distension: no JVD Heart sounds: S1 normal heart sound present and S2 normal heart sound present GI Inspection: Yes normal to inspection Palpation (GI): Soft to palpation, not firm, nontender, no guarding and not rigid General: Yes no CVA tenderness Back/Spine/Pelvis Back: no CVA tenderness and No back tenderness Skin General skin exam: no rashes or lesions noted, elasticity normal and turgor normal Neuro General: patient oriented x3, gait normal, tone normal, moves all extremities, Normal light touch and pain sensation, no meningeal signs, no focal motor deficits, CN's II-XI intact bilaterally and normal sensation to monofilament Extrem General: Yes normal to inspection, Yes full ROM and Yes capillary refill normal Psych Appearance: grossly normal, well kempt and not disheveled Medical Decision Making Medical Decision Making MDM Narrative: 58-year-old male history of left foot fracture presents to ED with left ear pain. Really no palliative for white-yellow discharge in the ear canal with some erythema of the ear canal. . Negative for signs of mastoiditis. Negative for signs of osteomyelitis, cellulitis, TM perforation, fracture, or abscess. Patient discharged with antibiotics. Patient informed worrisome signs and informed to return to the ED immediately. Differential Diagnosis Differential Diagnoses: The differential diagnosis associated with the presentation includes (Otitis media externa) Admission/Observation Consideration of admission/observation: Escalation of care including admission/observation considered Independent Historian Clinical information obtained from an independent historian. History obtained from or confirmed by: Other (Patient) External Record Review External record reviewed: Other (Prior visits) Prescription Management I considered prescription management with: Pain Medication Discharge Plan Discharge Clinical Impression: Otitis externa, Otitis media Patient Disposition: Home, Self-Care Instructions: Otitis Externa (ED) Additional Instructions: Recommend follow-up with primary care provider. Return to the ED immediately worsening ear pain, swelling, ear discharge, redness, fever, chills, dizziness, headache, nausea, vomiting, or any other concerning symptoms. Prescriptions: New amoxicillin-pot clavulanate 875-125 mg tablet 1 tab PO Q12H 10 Days Qty: 20 0RF naproxen 500 mg tablet 500 mg PO BID PRN (Reason: pain) 7 Days Qty: 14 0RF Cortisporin-TC 3.3-3-10-0.5 mg/mL drops,suspension 4 drp otic (ear) left TID 7 Days Qty: 10 0RF No Action cephalexin 500 mg capsule 500 mg PO Q6H 7 Days Qty: 28 0RF cephalexin 500 mg capsule 500 mg PO QID 7 Days Qty: 28 0RF gabapentin 600 mg tablet 600 mg PO QID acetaminophen [Tylenol] 325 mg capsule 325 mg PO QID PRN Stand Alone Forms: Work/School Release Interventions: ED Discharge Assessment Last Done: 11/25/23 11:43 Discharge Date/Time: 11/25/23 11:43 Print Language: Belarusian
[2023-11-25 11:43] VITALS: BP 142/77; PULSE 86; RESP 20; TEMP 35.8; O2SAT 96
== END 2023-11-25 11:43 | disposition home or self-care (01) ==
PROVIDERS: Emergency Provider Emergency Medicine; PCP Internal Medicine Medical Oncology
DX: H60.92 Unspecified otitis externa, left ear (principal); H66.92 Otitis media, unspecified, left ear; H92.02 Otalgia, left ear; Z79.899 Other long term (current) drug therapy
CPT/HCPCS: 99283

== ENCOUNTER 2024-02-05 09:41 | Outpatient (REF) | payer MEDICAID, SELFPAY ==
[2024-02-05 10:01] LABS: MANUAL DIFF FLAG NO
[2024-02-05 10:14] LABS: Basophils Absolute Auto 0.1 X10*3/uL (0.0-0.2); Basophils Percent Auto 0.7 % (0-2); Eosinophils Absolute Auto 0.2 X10*3/uL (0.0-0.4); Eosinophils Percent Auto 3.3 % (0-4); Hematocrit 45.4 % (42.0-52.0); Hemoglobin 15.9 g/dl (14.0-18.0); Imm Gran Abs Auto 0.02 X10*3/uL (0.00-0.03); Imm Gran Pct Auto 0.3 % (0.0-0.4); Lymphocytes Absolute Auto 1.7 X10*3/uL (1.2-4.9); Lymphocytes Percent Auto 24.8 % (20-40); Mean Corpuscular Hemoglobin 32.4 pg (27.0-33.0); Mean Corpuscular Volume 92.5 fL (80.0-98.0); Mean Platelet Volume 8.4 fL (9.4-12.4); Monocytes Absolute Auto 0.5 X10*3/uL (0.1-1.2); Monocytes Percent Auto 7.2 % (2-11); Neutrophils Absolute Auto 4.5 x10*3/uL (2.0-8.3); Neutrophils Percent Auto 63.7 % (45-73); Platelet Count 218 X10*3/uL (160-400); Red Blood Count 4.91 X10*6/uL (4.60-5.80); Red Cell Distribution Width 11.8 % (11.0-16.0)
[2024-02-05 10:43] LABS: Alanine Aminotransferase 20 U/L (0-40); Albumin Level 4.4 g/dL (3.5-5.0); Alkaline Phosphatase 64 U/L (39-117); Anion Gap 11 (12-20); Aspartate Amino Transferase 18 U/L (5-37); Bilirubin Total 0.5 mg/dL (0.0-1.0); Blood Urea Nitrogen 11 mg/dL (9-16); Calcium 9.1 mg/dL (8.4-10.2); Carbon Dioxide 24 mmol/L (22-29); Chloride 108 mmol/L (96-108); Cholesterol 113 mg/dL (<200); Estimated Glomerular Filt Rate > 60; Glucose Fasting 117 mg/dL (60-99); HDL Cholesterol 31 mg/dL (>40); LDL Cholesterol Calculated 70 mg/dL (<100); Sodium 139 mmol/L (135-145); Total Protein 7.5 g/dL (6.5-8.0); Triglycerides 60 mg/dL (<150)
[2024-02-05 11:04] LABS: Prostate Specific Antigen 0.67 ng/mL (<0.05-4.0); Vitamin B12 316 pg/mL (200-900)
== END 2024-02-05 09:42 | disposition home or self-care (01) ==
LOC: HO.LAB 09:41
PROVIDERS: PCP Internal Medicine Medical Oncology; Visit Provider Internal Medicine Medical Oncology
DX: I10 Essential (primary) hypertension (principal); E66.01 Morbid (severe) obesity due to excess calories; E53.8 Deficiency of other specified B group vitamins; N40.0 Benign prostatic hyperplasia without lower urinary tract symptoms
CPT/HCPCS: 36415; 80053; 80061; 82607; 84153; 85025

== ENCOUNTER 2024-05-28 08:07 | Outpatient (REF) | payer MEDICAID, SELFPAY ==
--- OUTSIDE RECORDS SUMMARY | 2024-05-28 08:13 | XMS_ITS | Encounter Summary ---
Author Organization [employer] Address [address] [place] [address] [address] [place] [address] Care Team Providers Care Slide Attendant Name Role Phone Unavailable Primary Care Provider Unavailabl e Encounter Details Date Type Department Care Team (Latest Contact Info) Description 06/23/2021 Abstract [facility] CONVERSIONS Dental, Provider, DDS Social History Tobacco Use Types Packs/Day Years Used Date Smoking Tobacco: Never Assessed Sex and Gender Information Value Date Recorded Sex Assigned at Male 12/19/2021 10:36 AM EDT Legal Sex Male 10:36 AM EDT Gender Identity Other 12/19/2021 10:36 AM EDT Sexual Orientation Bisexual 12/19/2021 10 :36 AM EDT documented as of this encounter Plan of Treatment Not on file documented as of this encounter Visit Diagnoses Not on filedocumented in this encounter
--- OUTSIDE RECORDS SUMMARY | 2024-05-28 08:13 | XMS_ITS | Clinical Summary ---
Author Organization [employer] Address [address] [place] [address] Care Team Providers Care Research Mechanic Name Role Phone Unavailable Primary Care Provider Unavailabl e Allergies No known active allergies Medications gabapentin (Neurontin) 600 MG tablet 4 times a day. 10/06/2020 Active ibuprofen 400 MG tablet 1 tablet with food or milk as needed 03/08/2022 Active Social History Tobacco Use Types Packs/Day Years Used Date Smoking Tobacco: Former Cigarettes Smokeless Tobacco: Never Tobacco Cessation:Counseling Given: Not Answered Sex and Gender Information Value Date Recorded Sex Assigned at Male 12/19/2021 10:36 AM EDT Legal Sex Male 10:36 AM EDT Gender Identity Other 12/19/2021 10:36 AM EDT Sexual Orientation Bisexual 12/19/2021 10 :36 AM EDT Last Filed Vital Signs Vital Sign Reading Time Taken Comments Blood Pressure 130/64 06/26/2022 1:18 PM EDT Pulse 80 06/26/2022 1:18 PM EDT Temperature - - Respiratory Rate - - Oxygen Saturation - - Inhaled Oxygen Concentration - - Weight - - Height - - Body Mass Index - - Plan of Treatment Health Maintenance Due Date Last Done Comments CT Colonography 1965 Colonoscopy 1965 Colorectal Cancer Screening 1965 Dental X-Ray: Full Mouth 1965 Depression Screening 1965 FIT DNA/Cologuard 1965 FIT 1965 FOBT 1965 HIV Screening 1965 Lipid Panel 1965 SDOH Screening 1965 Sigmoidoscopy 1965 Alcohol/Substance Use Screening 1977 Hepatitis C Screening 08/19/1983 DTaP/Tdap/Td Vaccines (1 - Tdap) 1984 Hepatitis B Vaccines (1 of 3 - 19+ 3-dose series) 1984 Pneumococcal Vaccine: 50+ Years (1 of 1 - PCV) 08/19/2015 Zoster Vaccines (1 of 2) 08/19/2015 Dental Oral Exam 12/28/2022 06/26/2022 Dental Prophylaxis 12/28/2022 06/26/2022 Tobacco Screening 06/27/2023 06/26/2022 Dental X-Ray: Bitewings 06/28/2023 06/26/2022 COVID-19 Vaccine (4 - 2023-2 5 season) 2023 01/31/2022, 07/05/2021, 02/03/2021 Influenza Vaccine (#1) 2023 RSV Patients and Patients Aged 60 years or older (1 - 1-dose 75+ series) 2040 HIB Vaccines Aged Out No longer eligi ble based on patient's age to complete this topic HPV Vaccines Aged Out No longer eligi ble based on patient's age to complete this topic Hepatitis A Vaccines Aged Out No long er eligible based on patient's age to complete this topic IPV Vaccines Aged Out No longer eligi ble based on patient's age to complete this topic Meningococcal Vaccine Aged Out No shan kira eligible based on patient's age to complete this topic Pneumococcal Vaccine: Pediatrics (0 to 5 Years) and At-Risk Patients (6 to 49) Years) Aged Out No longer eligible b ased on patient's age to complete this topic RSV under 20 months Aged Out No longe r eligible based on patient's age to complete this topic Rotavirus Vaccines Aged Out No longer eligible based on patient's age to complete this topic Procedures Procedure Name Priority Date/Time Associated Diagnosis Comments PROPHYLAXIS - ADULT Routine 06/26/2022 1 :00 PM EDT Encounter for dental examination BITEWINGS - 4 RADIOGRAPHIC IMAGES Routine 06/26/2022 1:00 PM EDT Encounter for dental examination PERIODIC ORAL EVALUATION - ESTABLISHED PATIENT Routine 06/26/2022 1:00 PM EDT from Last 3 Months or Most Recently Relevant to Health Maintenance Insurance [place] AD[place]
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
--- OUTSIDE RECORDS SUMMARY | 2024-05-28 08:13 | XMS_ITS | Encounter Summary ---
Author Organization [employer] Address [address] [place] [address] [address] [place] [address] Care Team Providers Care Finish Off Operator Name Role Phone Unavailable Primary Care Provider Unavailabl e Encounter Details Date Type Department Care Team (Latest Contact Info) Description 01/01/2019 Abstract [facility] CONVERSIONS Dental, Provider, DDS Social History [...]
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
--- OUTSIDE RECORDS SUMMARY | 2024-05-28 08:13 | XMS_ITS | Patient Health Record ---
Author Organization Casa Dyson III, MD Address [address] [facility] [place] [address] Care Team Providers Care Mechanic'S Assistant Name Role Phone Casa Dyson Primary Care Provider Allergies Allergen (clinical drug ingredient) Drug/Non Drug Allergy documented on EMR Reaction Allergy Type Onset Date Status Grapeseed Extract Unknown Drug Allergy Active Results Component Value Reference Range Notes Complete Blood Count Auto Di ff Reviewed date:08/04/2023 05:20:13 AM Interpretation: Performing Lab:[facility], [address] [place] [phone] Notes/Report: White Blood Count 7.0 4.8-10.8 X10*3/uL Red Blood Count 4.91 4.60-5.80 X10*6/uL Hemoglobin 15.9 14.0-18.0 g/dl Hematocrit 45.3 42.0-52.0 % Mean Corpuscular Volume 92.3 80.0-98.0 fL Mean Corpuscular Hemoglobin 32.4 27.0-33.0 pg Mean Corpuscular HGB Conc 35.1 31.0-36.0 g/dl Red Cell Distribution Width 12.0 11.0-16.0 % Platelet Count 241 160-400 X10*3/uL Mean Platelet Volume 8.6 9.4-12.4 fL Neutrophils Percent Auto 61.7 45-73 % Imm Gran Pct Auto 0.3 0.0-0.4 % Lymphocytes Percent Auto 27.2 20-40 % Monocytes Percent Auto 6.9 2-11 % Eosinophils Percent Auto 3.2 0-4 % Basophils Percent Auto 0.7 0-2 % NRBC Pct Auto 0.0 0.0-0.2 /100WBC Neutrophils Absolute Auto 4.3 2.0-8.3 x10*3/u L Imm Gran Abs Auto 0.02 0.00-0.03 X10*3/uL Lymphocytes Absolute Auto 1.9 1.2-4.9 X10*3/u L Monocytes Absolute Auto 0.5 0.1-1.2 X10*3/uL Eosinophils Absolute Auto 0.2 0.0-0.4 X10*3/u L Basophils Absolute Auto 0.1 0.0-0.2 X10*3/uL NRBC Abs Auto 0.000 0.0-0.012 X10*3/uL Comprehensive [place]. Panel Fa st Reviewed date:08/04/2023 05:20:13 AM Interpretation: Performing Lab:[facility], [address] [place] [phone] Notes/Report: Sodium 140 135-145 mmol/L Potassium 4.1 3.3-5.1 mmol/L Chloride 108 96-108 mmol/L Carbon Dioxide 26 22-29 mmol/L Anion Gap 10 12-20 Blood Urea Nitrogen 13 9-16 mg/dL Creatinine 0.67 0.5-1.4 mg/dL Estimated Glomerular Filt Rate > 60 NOTE: For -[place] individuals, multiply the result by 1.210. Chronic Kidney Disease: Estimated GFR < 60 mL/min/1.73m2 Severe Kidney Disease: Estimated GFR < 15 mL/min/1.73m2 Glucose Fasting 103 60-99 mg/dL A fasting glucose from 100-125 mg/dl is considered impaired (pre-diabetes). Calcium 9.7 8.4-10.2 mg/dL Bilirubin Total 0.5 0.0-1.0 mg/dL Aspartate Amino Transferase 13 5-37 U/L Alanine Aminotransferase 17 0-40 U/L Total Protein 7.3 6.5-8.0 g/dL Albumin Level 4.3 3.5-5.0 g/dL Alkaline Phosphatase 59 39-117 U/L Lipid Panel Reviewed date:08/04/2023 05:20:13 AM Interpretation: Performing Lab:[facility], [address] [place] [phone] Notes/Report: Triglycerides 83 <150 mg/dL Desirable Triglyceride: less than 150 mg/dL Borderline High Triglyceride 150-199 mg/dL High Triglyceride: 200-499 mg/dL Very High Triglyceride: greater than or equal to 5OO mg/dL Cholesterol 132 <200 mg/dL Desirable Cholesterol: less than 200 mg/dL Borderline High Cholesterol: 200-239 mg/dL High Cholesterol: greater than 239 mg/dL LDL Cholesterol Calculated 84 <100 mg/dL Desirable LDL: less than 100 mg/dL Near Optimal/Above Optimal LDL: 110-129 mg/dL Borderline High LDL: 130-159 mg/dL High LDL: 160-189 mg/dL Very High LDL: greater than or equal to 190 mg/dL HDL Cholesterol 32 >40 mg/dL Desirable HDL: greater than 40 mg/dL Note: This HDL assay may give artificially low results in patients with liver disease. Prostate Specific Antigen Reviewed date:08/04/2023 05:20:13 AM Interpretation: Performing Lab:[facility], [address] [place] [phone] Notes/Report: Prostate Specific Antigen 0.50 <0.05-4.0 ng/mL PSA methodology: Perla Alinity i Chemiluminescent Microparticle Immunoassay (CMIA) Vitamin B12 Reviewed date:08/04/2023 05:20:13 AM Interpretation: Performing Lab:[facility], [address] [place] [phone] Notes/Report: Vitamin B12 285 200-900 pg/mL NORMAL 200-900 PG/ML INDETERMINATE 160-199 PG/ML DEFICIENT < 160 PG/ML Hemoglobin A1c Reviewed date:08/04/2023 05:20:13 AM Interpretation: Performing Lab:[facility], [address] [place] [phone] Notes/Report: Hemoglobin A1c % 5.5 <6.0 % Hemoglobin A1C Reference Range Adults: 4.8 - 6.0 % Non diabetic: < 6.0 % Goal: < 7.0 % Additional Action Suggested: > 8.0 % Note: Hemoglobin A1c results are invalid for patients with abnormal amounts of HbF. Blood transfusions may impact the HbA1c concentration in the patient sample. Estimated Average Glucose 111 eAG = Estimated average glucose which is %A1C expressed as average glucose, using the formula of the [id number] Average Glucose study (ADAG), Diabetes Care, Vol.31,#8, 2007 Complete Blood Count Auto Di ff Reviewed date:09/12/2023 12:54:19 PM Interpretation: Performing Lab:[facility], [address] [place] [phone] Notes/Report: White Blood Count 10.5 4.8-10.8 X10*3/uL Red Blood Count 4.80 4.60-5.80 X10*6/uL Hemoglobin 15.6 14.0-18.0 g/dl Hematocrit 44.4 42.0-52.0 % Mean Corpuscular Volume 92.5 80.0-98.0 fL Mean Corpuscular Hemoglobin 32.5 27.0-33.0 pg Mean Corpuscular HGB Conc 35.1 31.0-36.0 g/dl Red Cell Distribution Width 11.9 11.0-16.0 % Platelet Count 184 160-400 X10*3/uL Mean Platelet Volume 8.2 9.4-12.4 fL Neutrophils Percent Auto 76.1 45-73 % Imm Gran Pct Auto 0.3 0.0-0.4 % Lymphocytes Percent Auto 14.6 20-40 % Monocytes Percent Auto 7.4 2-11 % Eosinophils Percent Auto 1.2 0-4 % Basophils Percent Auto 0.4 0-2 % NRBC Pct Auto 0.0 0.0-0.2 /100WBC Neutrophils Absolute Auto 8.0 2.0-8.3 x10*3/u L Imm Gran Abs Auto 0.03 0.00-0.03 X10*3/uL Lymphocytes Absolute Auto 1.5 1.2-4.9 X10*3/u L Monocytes Absolute Auto 0.8 0.1-1.2 X10*3/uL Eosinophils Absolute Auto 0.1 0.0-0.4 X10*3/u L Basophils Absolute Auto 0.0 0.0-0.2 X10*3/uL NRBC Abs Auto 0.000 0.0-0.012 X10*3/uL Comprehensive Met. Panel Reviewed date:09/12/2023 12:54:19 PM Interpretation: Performing Lab:[facility], [address] [place] [phone] Notes/Report: Sodium 139 135-145 mmol/L Potassium 4.1 3.3-5.1 mmol/L Chloride 107 96-108 mmol/L Carbon Dioxide 23 22-29 mmol/L Anion Gap 13 12-20 Blood Urea Nitrogen 12 9-16 mg/dL Creatinine 0.77 0.5-1.4 mg/dL Creatinine Clr Calc Pharmacy 142.0 eGFR (calculated from the MDRD study equation) and eCrCl (calculated from the Cockcroft-Gault equation) are based on different parameters and may not yield comparable results. If eCrCl result is absurd, please check patient's height/weight. Estimated Glomerular Filt Rate > 60 NOTE: For -[place] individuals, multiply the result by 1.210. Chronic Kidney Disease: Estimated GFR < 60 mL/min/1.73m2 Severe Kidney Disease: Estimated GFR < 15 mL/min/1.73m2 Glucose Random 102 60-115 mg/dL Calcium 9.6 8.4-10.2 mg/dL Bilirubin Total 0.6 0.0-1.0 mg/dL Aspartate Amino Transferase 12 5-37 U/L Alanine Aminotransferase 15 0-40 U/L Total Protein 7.4 6.5-8.0 g/dL Albumin Level 4.2 3.5-5.0 g/dL Alkaline Phosphatase 55 39-117 U/L Magnesium Reviewed date:09/12/2023 12:54:19 PM Interpretation: Performing Lab:[address] [phone] Notes/Report: Magnesium 2.0 1.6-2.6 mg/dL SARS-CoV2/FLU/RSV Reviewed date:09/12/2023 12:54:19 PM Interpretation: Performing Lab:[address] [phone] Notes/Report: Influenza A PCR NEGATIVE Negative Influenza B PCR NEGATIVE Negative Resp Syncy Virus RNA Qual PCR NEGATIVE Negative SARS COV2 PCR INHOUSE NEGATIVE Negative All test results must be correlated with clinical findings. Negative results do not preclude SARS-CoV2, influenza A virus, influenza B virus and/or RSV infection and should not be used as the sole basis for treatment or other patient management decisions. Negative results must be combined with clinical observations, patient history, and epidemiological information. This test has not been evaluated for monitoring treatment of infection. This test has been authorized by the FDA under an Emergency Use Authorization (EUA) for use by authorized laboratories. Testing performed on the sarvaMAIL GeneXpert utilizing real-time RT-PCR. All SARS CoV2 and positive influenza A/B results are reported to [facility]. Complete Blood Count Auto Di ff Reviewed date:02/05/2024 08:41:48 PM Interpretation: Performing Lab:[facility], [address] [facility], [place] [address] Notes/Report: White Blood Count 7.0 4.8-10.8 X10*3/uL Red Blood Count 4.91 4.60-5.80 X10*6/uL Hemoglobin 15.9 14.0-18.0 g/dl Hematocrit 45.4 42.0-52.0 % Mean Corpuscular Volume 92.5 80.0-98.0 fL Mean Corpuscular Hemoglobin 32.4 27.0-33.0 pg Mean Corpuscular HGB Conc 35.0 31.0-36.0 g/dl Red Cell Distribution Width 11.8 11.0-16.0 % Platelet Count 218 160-400 X10*3/uL Mean Platelet Volume 8.4 9.4-12.4 fL Neutrophils Percent Auto 63.7 45-73 % Imm Gran Pct Auto 0.3 0.0-0.4 % Lymphocytes Percent Auto 24.8 20-40 % Monocytes Percent Auto 7.2 2-11 % Eosinophils Percent Auto 3.3 0-4 % Basophils Percent Auto 0.7 0-2 % NRBC Pct Auto 0.0 0.0-0.2 /100WBC Neutrophils Absolute Auto 4.5 2.0-8.3 x10*3/u L Imm Gran Abs Auto 0.02 0.00-0.03 X10*3/uL Lymphocytes Absolute Auto 1.7 1.2-4.9 X10*3/u L Monocytes Absolute Auto 0.5 0.1-1.2 X10*3/uL Eosinophils Absolute Auto 0.2 0.0-0.4 X10*3/u L Basophils Absolute Auto 0.1 0.0-0.2 X10*3/uL NRBC Abs Auto 0.000 0.0-0.012 X10*3/uL Comprehensive [place]. Panel Fa st Reviewed date:02/05/2024 08:41:48 PM Interpretation: Performing Lab:[facility], [address] [place] [phone] Notes/Report: Sodium 139 135-145 mmol/L Potassium 4.0 3.3-5.1 mmol/L Chloride 108 96-108 mmol/L Carbon Dioxide 24 22-29 mmol/L Anion Gap 11 12-20 Blood Urea Nitrogen 11 9-16 mg/dL Creatinine 0.67 0.5-1.4 mg/dL Estimated Glomerular Filt Rate > 60 Chronic Kidney Disease: Estimated GFR < 60 mL/min/1.73m2 Severe Kidney Disease: Estimated GFR < 15 mL/min/1.73m2 Glucose Fasting 117 60-99 mg/dL A fasting glucose from 100-125 mg/dl is considered impaired (pre-diabetes). Calcium 9.1 8.4-10.2 mg/dL Bilirubin Total 0.5 0.0-1.0 mg/dL Aspartate Amino Transferase 18 5-37 U/L Alanine Aminotransferase 20 0-40 U/L Total Protein 7.5 6.5-8.0 g/dL Albumin Level 4.4 3.5-5.0 g/dL Alkaline Phosphatase 64 39-117 U/L Lipid Panel Reviewed date:02/05/2024 08:41:48 PM Interpretation: Performing Lab:[facility], [address] [place] [phone] Notes/Report: Triglycerides 60 <150 mg/dL Desirable Triglyceride: less than 150 mg/dL Borderline High Triglyceride 150-199 mg/dL High Triglyceride: 200-499 mg/dL Very High Triglyceride: greater than or equal to 5OO mg/dL Cholesterol 113 <200 mg/dL Desirable Cholesterol: less than 200 mg/dL Borderline High Cholesterol: 200-239 mg/dL High Cholesterol: greater than 239 mg/dL LDL Cholesterol Calculated 70 <100 mg/dL Desirable LDL: less than 100 mg/dL Near Optimal/Above Optimal LDL: 110-129 mg/dL Borderline High LDL: 130-159 mg/dL High LDL: 160-189 mg/dL Very High LDL: greater than or equal to 190 mg/dL HDL Cholesterol 31 >40 mg/dL Desirable HDL: greater than 40 mg/dL Note: This HDL assay may give artificially low results in patients with liver disease. Prostate Specific Antigen Reviewed date:02/05/2024 08:41:48 PM Interpretation: Performing Lab:[facility], [address] [place] [phone] Notes/Report: Prostate Specific Antigen 0.67 <0.05-4.0 ng/mL PSA methodology: Perla Alinity i Chemiluminescent Microparticle Immunoassay (CMIA) Vitamin B12 Reviewed date:02/05/2024 08:41:48 PM Interpretation: Performing Lab:[facility], [address] [place] [phone] Notes/Report: Vitamin B12 316 200-900 pg/mL NORMAL 200-900 PG/ML INDETERMINATE 160-199 PG/ML DEFICIENT < 160 PG/ML Reason For Referral Reason Consult and Treat Carole mbar Back Pain Diagnosis 1 Lumbar radiculopathy (M54.16) Referral Organization Casa Dyson III, MD Referring Provider First Name Casa Referring Provider Last Name Karis Referring Provider Speciality Internal edicine Referred Provider ELIDIA MOY Referred Provider Specialty Chiropractor , licensed (effective August 1972) Referral Priority Routine Referral Appointment Date 07/11/2023 Reason Physical Therapy Low er Body Strengthening Diagnosis 1 Leg weakness, bilate ral (R29.898) Referral Organization Casa Dyson III, MD Referring Provider First Name Casa Referring Provider Last Name Karis Referring Provider Speciality Internal edicine Referred Provider [employer] Referred Provider Specialty Physical The rapist General Notes Alisson Johnson 2023 03:16:05 PM EDT > Faxed Rx to [facility] they will be contacting patient to schedule appointment. Referral Priority Routine Reason Consult and Treat Diagnosis 1 Nystagmus (H55.00) Diagnosis 2 Vertigo (R42) Referral Organization Casa Dyson III, MD Referring Provider First Name Casa Referring Provider Last Name Karis Referring Provider Speciality Internal edicine Referred Provider Allison Mcrae Referred Provider Specialty Neurology General Notes Alisson Johnson 2023 01:23:12 PM EDT > Faxed referral and progress noteAlex Amber 11/22/2023 03:30:04 PM > did not receive referral refaxingFiordaliza Henning Amber 12/11/2023 01:29:00 PM > Patient is scheduled for 01/24/2024 @ 11:30am with Dr. Mcrae Patient was called and notified. Letter was mailed. Referral Priority Routine Referral Appointment Date 01/24/2024 Medications Medication SIG (Take, Route, Frequency, Duration) Notes Start Date End Date Status Vitamin B-12 1000 MCG TAKE 1 TABLET BY M OUTH EVERY DAY Active Gabapentin 600 MG 1 tablet Orally 4 [...] FOR PAIN FOR 7 DAYS Oral Active Carbamide Peroxide 6.5 % 5 drops into af fected ear Otic Twice a day 11/30/2023 Active Meclizine HCl 25 MG 1-2 tabs Orally thre e times a day Active Immunizations Vaccine Route Administration Date Status Comme nts COVID- 19 Vaccine Unknown 02/03/2021 Administered moder na BOOSTER COVID- 19 Vaccine Unknown 07/05/2021 Administered COVID- 19 Vaccine Unknown 01/31/2022 Administered COVID Moderna Bivalent Unknown 01/31/2022 Administered Decline: Influenza Unknown 02/06/2023 Others Social History Tobacco Use: Social History Observation Description Date Details (start date - stop date) Former Smoker NA - NA Sex Assigned At : Social History Observation Description Sex Assigned At Male Tobacco Use/Smoking Question Answer Notes Patient is a former smoker How long has it been since you last smoked? 3-6 months Additional Findings: Tobacco Non-User Ex-cigaret te smoker Alcohol Screen Question Answer Notes Did you have a drink containing alcohol in the p ast year? No Points 0 Interpretation Negative Problems Problem Type SNOMED Code ICD Code Onset Dates Problem Status W/U Status Risk Notes Problem 4393055 Former smoker (Z87.891) Active confirmed We made a plan to prevent relapse and timess of stress and illness. Problem 38273144 Hyperglycemia (R73.9) Active confirmed He has a fasting glucose of 138, which is diabetic range. This is likely due to weight gain. It will be repeated with a hemoglobin A1c. He was advised about the importance of his weight loss program. Problem 248484814 Lumbar radiculopathy (M54.16) Active confirmed His back pain has resolved. He is avoiding heavy lifting and undue physical exertion. Problem Impacted cerumen (24101455) Impacted cerumen, unspecified ear (H61.20) Active confirmed Cerumen impaction has been cleared Problem 057610913 Vitamin B12 deficiency (E53.8) Active confirmed He says he has stopped all of his medications. Comprehensive blood work with a B12 has been ordered. I recommended he continue the B12 medication. Problem Benign prostatic hyperplasia (106034709) BPH (benign prostatic hyperplasia) (N40.0) Active confirmed He rises from sleep once or twice a night. We discussed lifestyle modification as a way to reduce nocturia. Problem 17153024 Essential hypertension (I10) Active confirmed His blood presssure is 137/81. I have encouraged aggressive sodium restriction and weight loss. Problem 440202749 Morbid obesity (E66.01) Active confirmed He has lost 5pounds since his last visit. I have referred him to the metabolic clinic at [facility] for weight loss. He has early diabetes. Problem Disorder of musculoskeletal system (732136) Leg weakness, bilateral (R29.898) Active confirmed Problem 93313343 Bilateral hearing loss, unspecified hearing loss type (H91.93) Active confirmed He will return to ENT for further evaluation. Vital Signs Heart Rate 67 /min 12/25/2023 Temperature 99.0 degrees Fahrenheit 12/25/2023 Blood pressure diastolic 70 mm Hg 12/25/2023 Height 69 in 12/25/2023 Blood pressure systolic 127 mm Hg 12/25/2023 Weight 286 lbs 12/25/2023 BMI 42.23 kg/m2 12/25/2023 Encounters Encounter Location Date Provider Diagnosis Casa Dyson III, MD [address] [place] [address] [place] [address] 08/09/2023 Casa Dyson Essential hypertensi on I10 ; Lumbar radiculopathy M54.16 ; Morbid obesity E66.01 ; Vitamin B12 deficiency E53.8 ; Former smoker Z87.891 and Leg weakness, bilateral R29.898 Casa Dyson III, MD [address] [place] [address] [place] [address] 09/14/2023 Casa Dyson Essential hypertensi on I10 ; Lumbar radiculopathy M54.16 ; Morbid obesity E66.01 ; Vitamin B12 deficiency E53.8 ; Former smoker Z87.891 ; Vitamin D deficiency E55.9 and Left leg cellulitis L03.116 Casa Dyson III, MD [address] [place] [address] [place] [address] 11/02/2023 Casa Dyson Essential hypertensi on I10 ; Lumbar radiculopathy M54.16 ; Morbid obesity E66.01 ; Vitamin B12 deficiency E53.8 ; Former smoker Z87.891 ; Vitamin D deficiency E55.9 ; BPH (benign prostatic hyperplasia) N40.0 and Bilateral hearing loss, unspecified hearing loss type H91.93 Casa Dyson III, MD [address] [place] [address] [facility] [place] [address] 11/30/2023 Casa Dyson Essential hypertensi on I10 ; Morbid obesity E66.01 ; Bilateral hearing loss, unspecified hearing loss type H91.93 ; Lumbar radiculopathy M54.16 ; Vitamin B12 deficiency E53.8 ; BPH (benign prostatic hyperplasia) N40.0 and Former smoker Z87.891 Casa Dyson III, MD [address] [place] [address] [place] [address] 12/07/2023 Casa Dyson Impacted cerumen, unspecified ear H61.20 ; Morbid obesity E66.01 ; Bilateral hearing loss, unspecified hearing loss type H91.93 and Former smoker Z87.891 Casa Dyson III, MD [address] [place] [address] [place] [address] 12/14/2023 Casa Dyson Essential hypertensi on I10 ; Lumbar radiculopathy M54.16 ; Morbid obesity E66.01 ; Vitamin B12 deficiency E53.8 ; BPH (benign prostatic hyperplasia) N40.0 ; Bilateral hearing loss, unspecified hearing loss type H91.93 ; Impacted cerumen, unspecified ear H61.20 and Former smoker Z87.891 Casa Dyson III, MD [address] [place] [address] [place] [address] 12/17/2023 Casa Dyson Impacted cerumen, unspecified ear H61.20 ; Lumbar radiculopathy M54.16 ; Acute right otitis media H66.91 ; Morbid obesity E66.01 and BPH (benign prostatic hyperplasia) N40.0 Casa Dyson III, MD [address] [facility] [place] [address] 12/18/2023 Casa Dyson Impacted cerumen, unspecified ear H61.20 ; Morbid obesity E66.01 ; Essential hypertension I10 ; Lumbar radiculopathy M54.16 ; BPH (benign prostatic hyperplasia) N40.0 ; Bilateral hearing loss, unspecified hearing loss type H91.93 and Former smoker Z87.891 Casa Dyson III, MD [address] [place] [address] [place] [address] 12/25/2023 Casa Dyson Impacted cerumen, unspecified ear H61.20 ; Morbid obesity E66.01 ; Essential hypertension I10 ; Lumbar radiculopathy M54.16 ; BPH (benign prostatic hyperplasia) N40.0 ; Former smoker Z87.891 ; Bilateral hearing loss, unspecified hearing loss type H91.93 and Vision abnormalities H53.9 Casa Dyson III, MD [address] [place] [address] [place] [address] 06/12/2023 Casa Dyson III, MD [address] [place] [address] [place] [address] 07/11/2023 Casa Dyson III, MD [address] [place] [address] [place] [address] 07/18/2023 Casa Dyson III, MD [address] [place] [address] [place] [address] 07/27/2023 Casa Dyson III, MD [address] [place] [address] [place] [address] 08/13/2023 Casa Dyson III, MD [address] [place] [address] [place] [address] 08/13/2023 Casa Dyson III, MD [address] [place] [address] [place] [address] 09/13/2023 Casa Dyson III, MD [address] [place] [address] [place] [address] 09/24/2023 Casa Dyson III, MD [address] [place] [address] [place] [address] 11/06/2023 Casa Dyson III, MD [address] [place] [address] [address] [place] [address] 12/10/2023 Casa Dyson III, MD [address] [place] [address] [address] [place] [address] 12/10/2023 Casa Dyson Assessments Encounter Date Diagnosis (ICD Code) Assessment Notes Treatment Notes Treatment Clinical Notes 08/09/2023 Lumbar radiculopathy (ICD-10 - M54.16) His back pain has resolved. He is avoiding heavy lifting and undue physical exertion. 08/09/2023 Essential hypertension (ICD-10 - I10) His blood pressure is stable and normal at the current time. His Weight is stable. He will be seen frequently. 09/14/2023 Lumbar radiculopathy (ICD-10 - M54.16) His back pain has resolved. He is avoiding heavy lifting and undue physical exertion. 09/14/2023 Essential hypertension (ICD-10 - I10) His blood pressure is stable and normal at the current time. His Weight is stable. He will be seen frequently. 11/02/2023 Lumbar radiculopathy (ICD-10 - M54.16) His back pain has resolved. He is avoiding heavy lifting and undue physical exertion. 11/02/2023 Essential hypertension (ICD-10 - I10) His blood pressure is stable and normal at the current time. His Weight is stable. He will be seen frequently. 11/30/2023 Essential hypertension (ICD-10 - I10) His blood pressure is stable and normal at the current time. His Weight is stable. He will be seen frequently. 11/30/2023 Morbid obesity (ICD-10 - E66.01) He has lost 12 pounds since his last visit. I have referred him to the metabolic clinic at [facility] for weight loss. He has early diabetes. 12/07/2023 Impacted cerumen, unspecified ear (ICD-10 - H61.20) This was cleared without incident with warm water irrigation. He will return to audiology. 12/07/2023 Morbid obesity (ICD-10 - E66.01) He has lost 12 pounds since his last visit. I have referred him to the metabolic clinic at [facility] for weight loss. He has early diabetes. 12/14/2023 Lumbar radiculopathy (ICD-10 - M54.16) His back pain has resolved. He is avoiding heavy lifting and undue physical exertion. 12/14/2023 Essential hypertension (ICD-10 - I10) His blood pressure has been stable. It is not available today. He was given an appointment to come to the office in the near future to have his vital signs measured. 12/17/2023 Lumbar radiculopathy (ICD-10 - M54.16) His back pain has resolved. He is avoiding heavy lifting and undue physical exertion. 12/17/2023 Impacted cerumen, unspecified ear (ICD-10 - H61.20) This was cleared without incident with warm water irrigation. He will return to audiology.His hearing was not immproved. 12/18/2023 Impacted cerumen, unspecified ear (ICD-10 - H61.20) This was cleared without incident with warm water irrigation. He will return to audiology.His hearing was not immproved. 12/18/2023 Morbid obesity (ICD-10 - E66.01) He has lost 5pounds since his last visit. I have referred him to the metabolic clinic at [facility] for weight loss. He has early diabetes. 12/25/2023 Impacted cerumen, unspecified ear (ICD-10 - H61.20) Cerumen impaction has been cleared 12/25/2023 Morbid obesity (ICD-10 - E66.01) He has lost 5pounds since his last visit. I have referred him to the metabolic clinic at [facility] for weight loss. He has early diabetes. 08/09/2023 Morbid obesity (ICD-10 - E66.01) He has lost 8 pounds since his last visit. I have referred him to the metabolic clinic at [facility] for weight loss. He has early diabetes. 09/14/2023 Morbid obesity (ICD-10 - E66.01) He has lost 8 pounds since his last visit. I have referred him to the metabolic clinic at [facility] for weight loss. He has early diabetes. 11/02/2023 Morbid obesity (ICD-10 - E66.01) He has lost 12 pounds since his last visit. I have referred him to the metabolic clinic at [facility] for weight loss. He has early diabetes. 11/30/2023 Bilateral hearing loss, unspecified hearing loss type (ICD-10 - H91.93) He is noted to have mild bilateral hearing loss. He was seen by audiology this morning to confirm this but they cannot fully evaluate him as he has a right ear impaction with cerumen. He will use Zebrax for 7 days 4 drops in each ear twice a day and then return her warm water irrigation so that he may be fitted for hearing aids. There is no sign of an infection. He will continue the antibiotic that was given to him in the emergency room recently. 12/07/2023 Bilateral hearing loss,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
--- OUTSIDE RECORDS SUMMARY | 2024-05-28 08:13 | XMS_ITS ---
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 Name Role Phone Casa Dyson Primary Care Provider Allergies Allergen (clinical drug ingredient) Drug/Non Drug Allergy documented on EMR Reaction Allergy Type Onset Date Status Grapeseed Extract Unknown Drug Allergy Active REASON FOR VISIT Follow up Medications Medication SIG (Take, Route, Frequency, Duration) Notes Start Date End Date Status Gabapentin 600 MG 1 tablet Orally 4 ti mes a day Active Vitamin D 25 MCG (1000 UT) 1 tablet Orally Once a day 02/01/2022 Active Ibuprofen 400 MG 1 tablet with food o r milk as needed Orally Three times a day prn back pain 03/08/2022 Active Naproxen 500 MG TAKE 1 TABLET [...] Non-User Ex-cigaret te smoker Vital Signs Temperature 98.1 degrees Fahrenheit 12/18/19 24 Blood pressure systolic 137 mm Hg 12/18/19 24 Blood pressure diastolic 81 mm Hg 024 Heart Rate 80 /min 12/18/2023 Height 69 in 12/18/2023 Weight 284 lbs 12/18/2023 BMI 41.93 kg/m2 12/18/2023 Encounters Encounter Location Date Provider Diagnosis Casa Dyson III, MD [address] [place] [address] [place] [address] 12/18/2023 Casa Dyson Impacted cerumen, unspecified ear H61.20 ; Morbid obesity E66.01 ; Essential hypertension I10 ; Lumbar radiculopathy M54.16 ; BPH (benign prostatic hyperplasia) N40.0 ; Bilateral hearing loss, unspecified hearing loss type H91.93 and Former smoker Z87.891 Assessments Encounter Date Diagnosis (ICD Code) Assessment Notes Treat ment Notes Treatment Clinical Notes 12/18/2023 Impacted cerumen, unspecified ear (ICD-10 - H61.20) This was cleared without incident with warm water irrigation. He will return to audiology.His hearing was not immproved. 12/18/2023 Morbid obesity (ICD-10 - E66.01) He has lost 5pounds since his last visit. I have referred him to the metabolic clinic at [facility] for weight loss. He has early diabetes. 12/18/2023 Essential hypertension (ICD-10 - I10) His blood presssure is 137/81. I have encouraged aggressive sodium restriction and weight loss. 12/18/2023 Lumbar radiculopathy (ICD-10 - M54.16) His back pain has resolved. He is avoiding heavy lifting and undue physical exertion. 12/18/2023 BPH (benign prostatic hyperplasia) (ICD-10 - N40.0) He rises from sleep once or twice a night. We discussed lifestyle modification as a way to reduce nocturia. 12/18/2023 Bilateral hearing loss, unspecified hearing loss type (ICD-10 - H91.93) He will return to ENT for further evaluation. 12/18/2023 Former smoker (ICD-10 - Z87.891) We made a plan to prevent relapse and timess of stress and illness. Plan Of Treatment Medication Medication Name Sig Start Date Stop Date Notes Gabapentin 600 MG 1 tablet Orally 4 times a day Vitamin D 25 MCG (1000 UT) 1 tablet Orally Once a day 01/19 Ibuprofen 400 MG 1 tablet with food o r milk as needed Orally Three times a day prn back pain 03/08/2022 Naproxen 500 MG TAKE 1 TABLET BY IDRIS TH TWICE A DAY NEEDED FOR PAIN FOR 7 DAYS Oral Meclizine HCl 25 MG 1-2 tabs Orally thre e times a day Vitamin B-12 1000 MCG TAKE 1 TABLET BY M OUTH EVERY DAY Carbamide Peroxide 6.5 % 5 drops into af fected ear Otic Twice a day 11/30/2023 Next Appt Details Follow Up: 1 Week, Next week after physical therapy, Reason: ov recheck ear, Check progress of left ear infection Progress Notes * Abhinav BELTRE ADOB:[birth year] (58 yo M)Acc No.[id number]:12/18/2023 Progress Notes Patient:?Abhinav BELTRE Provider:?Casa Dyson MD :1965???Age:58 Y???Sex:Male Christos e:12/18/2023 Address:[address] [place] [address] , [id number] Subjective: * Chief Complaints: * ???Follow up * HPI: ???COVID-19 Screening:?Questions?Have you experienced fever, chills, cough, sore throat, shortness of breath, difficulty breathing, muscle aches, loss of taste or smell??No ?Have you been exposed to the virus within the last 10 days??No ?Have you travelled internationally in the last 10 days??No ?Have you been exposed to COVID-19 in the past??No ???:?The patient, a 58-year-old male, reported experiencing discomfort in his left ear, which began after he started using hearing aids. He described a discharge of green, brown, and clear fluid from the affected ear. The patient also mentioned pain in his left shoulder, which extends down to his elbow. He has been undergoing upper body physical therapy for this issue. An X-ray revealed that his shoulder is slightly out of its socket. The patient has been self-massaging the area for relief, as his insurance does not cover massage therapy. An ski patrol officer's note indicated that the patient's right ear was unremarkable, but his left ear was painful and showed signs of a flat tympanogram, suggesting obstruction or fluid presence. The patient was referred to an ENT specialist for further examination and evaluation for amplification. * ROS:?General/Constitutional:?pain?Ears, Lumbar spine.?Chills?denies.?Fatigue?admits.?Fever?denies.?ENT:?Decreased hearing?denies.?Respiratory:?Cough?denies.?Cardiovascular:?Chest pain with exertion?denies.?Dyspnea on exertion?denies.?Shortness of breath?denies.?Gastrointestinal:?Constipation?occasional.?Decreased appetite?denies.?Diarrhea?denies.?Heartburn?denies.?Nausea?denies.?Rectal bleeding?denies.?Vomiting?denies.?Hematology:?bruising?denies.?petechiae?denies.?Swollen glands?none have been noted.?Genitourinary:?Frequent urination?denies.?Musculoskeletal:?Muscle aches?denies.?Painful joints?denies.?Sciatica?denies.?Weakness?denies.?Skin:?Itching?denies.?Rash?denies.?Skin lesion(s)?denies.?Neurologic:?Difficulty speaking?denies.?Dizziness?denies.?Headache?denies.?Low back pain?that is chronic.?Psychiatric:?Depressed mood?which is mild.? * Medical History:? 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 He was [facility] at [facility] and [facility]. He is not currently working as he is seeking disability on the basis of the low back pain. He has served with the [employer]. * Medications:?TakingMeclizine HCl 25 MG [...] no[Allergies Verified] Objective: * Vitals:?Ht: 69, Wt: 284, BMI :41.93, BP: 137/81, HR: 80, Temp: 98.1, Ht-cm: 175.26, Wt-k.82. * Examination: ???General Examination: ?GENERAL APPEARANCE:?pleasant, well nourished, well developed, in no acute distress, calm and relaxed, morbidly obese, man.?HEAD:?atraumatic, normocephalic.?EYES:?eomi, perrla, anicteric, conjugate.?EARS:?BilateralHearing loss.?NOSE:?septum intact.?ORAL CAVITY:?normal, unremarkable.?NECK/THYROID:?no jugular venous distention, no carotid bruit, thyroid normal.?LYMPH NODES:?no enlarged lymph nodes,spleen normal.?SKIN:?no suspicious lesions, anicteric.?HEART:?no clicks, gallops, murmurs, or rubs, regular rhythm, S1, S2 normal, no s3, or vascular bruits.?LUNGS:?clear to auscultation .?BREASTS:??no masses palpable bilaterally.?ABDOMEN:?bowel sounds normal, no ascites, no organomegaly, no mass, morbid obesity.?RECTAL EXAM:?not examined.?MUSCULOSKELETAL:?extremities unremarkable, no clubbing, cyanosis or edema, Decreased range of motion lumbar spine.?PERIPHERAL PULSES:?normal.?NEUROLOGIC:?alert and oriented, cranial nerves 2-12 grossly intact, deep tendon reflexes 2+ symmetrical, motor strength normal upper and lower extremities, sensory exam intact.?PSYCH:?alert, oriented.? : ???Right ear:No wax, clean, and good looking. Left ear:Eardrum is red, indicating an inner ear infection. ??? Assessment: * Assessment: 1.?Morbid obesity - E66.01 ( Primary)???Notes :He has lost 5pounds since his last visit. I have referred him to the metabolic clinic at [facility] for weight loss. He has early diabetes.???2.?Impacted cerumen, unspecified ear - H61.20???Notes :This was cleared without incident with warm water irrigation. He will return to audiology.His hearing was not immproved.???3.?Essential hypertension - I10???Notes :His blood presssure is 137/81. I have encouraged aggressive sodium restriction and weight loss.???4.?Lumbar radiculopathy - M54.16???Notes :His back pain has resolved. He is avoiding heavy lifting and undue physical exertion.???5.?BPH (benign prostatic hyperplasia) - N40.0???Notes :He rises from sleep once or twice a night. We discussed lifestyle modification as a way to reduce nocturia.???6.?Bilateral hearing loss, unspecified hearing loss type - H91.93???Notes :He will return to ENT for further evaluation.???7.?Former smoker - Z87.891???Notes :We made a plan to prevent relapse and timess of stress and illness.??? Plan: * Treatment: * Procedure Codes:? * Preventive Medicine:? ??Counseling:?Care goal follow-up plan:?Counseling for abnormal BMI given?Yes ?Above Normal BMI Follow-up?Dietary management education, guidance, and counseling, Dietary needs education ?Smoking/Tobacco Use?Patient counseled on the dangers of tobacco use and urged to quit.?12/18/2023 * Follow Up:?1 Week, Next week after physical therapy (Reason: ov recheck ear, Check progress of left ear infection) * Images: * Sign off status: Completed true * Provider:?Casa Dyson MD Date:?11/20 Generated for Printi ng/Faxing/eTransmitting on:?05/28/2024 08:13 AM EDT History and Physical Notes * HPI (History of Present Illness) Category Sub-Category Detail Notes COVID-19 Screening Questions Have you had any new onset fever, chills, cough, congestion, sore throat, shortness of breath, muscle aches?: No Have you been exposed to the virus withi n the last 10 days?: No Have you travelled internationally in health system last 10 days?: No Have you been exposed to COVID-19 in the past?: No Examination Category Sub-Category Detail Notes General Examination GENERAL APPEARANCE: pleasant , well nourished, well developed, in no acute distress, calm and relaxed, morbidly obese, man HEAD: atraumatic, normocep halic EYES: eomi, perrla, anicte angie, conjugate EARS: BilateralHearing los s NOSE: septum intact NECK/THYROID: no jugular venous [...] extremities unremark able, no clubbing, cyanosis or edema, Decreased range of motion lumbar spine LYMPH NODES: no enlarged lymph no angie,spleen normal RECTAL EXAM: not examined PSYCH: alert, oriented ORAL CAVITY: normal, unremarkable
--- OUTSIDE RECORDS SUMMARY | 2024-05-28 08:14 | XMS_ITS ---
Author Organization Casa Dyson III, MD Address [address] [place] [address] Care Team Providers Care Manual Writer Name Role Phone Casa Dyson Primary Care Provider [phone] REASON FOR VISIT Annual Exam Social History Sex Assigned At : Social History Observation Description Sex Assigned At Male Encounters Encounter Location Date Provider Diagnosis Casa Dyson III, MD [address] [place] [address] [address] [place] [address] 02/12/2024 Casa Dyson Plan Of Treatment No Information Progress Notes * Abhinav BELTRE ADOB:[birth year] (58 yo M)Acc No.[id number]:02/12/2024 Progress Notes Patient:?Abhinav BELTRE Provider:?Casa Dyson MD :1965???Age:58 Y???Sex:Male Christos e:02/12/2024 Address:[address] [id number] Subjective: * Chief Complaints: * ???1. Annual Exam. * Medical History:? Objective: * Vitals:? Assessment: Plan: * Treatment: * Images: * The named appointment provid er may or may not be the originator of this progress note, and it is not deemed complete until electronically signed by the appointment provider. Sign off status: Pending * Provider:?Casa Dyson MD Date:?01/20 Generated for Abbii danny/Karlie/eTransmitting on:?05/28/2024 08:13 AM EDT
[2024-05-28 10:17] LABS: Vitamin B12 297 pg/mL (200-900)
[2024-05-28 10:22] LABS: Thyroid Stimulating Hormone 1.07 uIU/mL (0.32-4.0)
== END 2024-05-28 08:08 | disposition home or self-care (01) ==
LOC: HO.LAB 08:07
PROVIDERS: PCP Internal Medicine Medical Oncology; Visit Provider Psychiatry & Neurology Neurology
DX: F07.0 Personality change due to known physiological condition (principal)
CPT/HCPCS: 36415; 82607; 84443